=== PATIENT | female | born 1995 | race Caucasian/White ===

== ENCOUNTER 2016-05-15 09:21 | Emergency (ER) | payer BC, OTHER ==
--- NOTE | 2016-05-15 10:12 | ED ---
Lower Extremity - HPI Summary HPI Summary: 20 female presents with complaints of left ankle pain after an injury that occurred while at training at the [facility] just [employer] 05/15/16. Patient states she was going up stairs of a building with her partner and his slipped and fell while going up the stairs in front of her, also causing her to lose her footing. His air pack fell onto the top of her left foot and her ankle was wedged between the air pack and the step. Denies any twisting, hearing popping or cracking and is able to bear weight. She can walk however it hurts to walk, bearing weight does not cause her much pain. She denies numbness/tingling and loss of ROM. She did not take anything for the pain before arrival. Denies PMHx. Denies radiation and pain in left knee or right lower extremity. - History of Current Complaint Chief Complaint: EDExtremityLower Stated Complaint: LT ANKLE INJURY Hx Obtained From: Patient Hx Last Menstrual Period: april 28 Mechanism Of Injury: Blunt Trauma - wedged in between air pack and stair Onset of Pain: Immediate Onset/Duration: Hours Severity Initially: Mild Severity Currently: Mild Pain Intensity: 4 Pain Scale Used: 0-10 Numeric Timing: Constant Location: Is Discrete @ - left ankle Character Of Pain: Aching - cramping, intermittently Associated Signs And Symptoms: Positive: Negative Aggravating Factor(s): Ambulation, Movement Alleviating Factor(s): Rest Able to Bear Weight: Yes - Allergies/Home Medications Allergies/Adverse Reactions: Allergies Allergy/AdvReac Type Severity Reaction Status Date / Time Sulfamethoxazole Allergy Intermediate Hives Verified 05/15/16 09:43 w/Trimethoprim [From Bactrim] PMH/Surg Hx/FS Hx/Imm Hx Endocrine/Hematology History: Denies: Hx Diabetes, Hx Thyroid Disease Cardiovascular History: Denies: Hx Hypercholesterolemia, Hx Hypertension, Hx Peripheral Vascular Disease Respiratory History: Reports: Hx Asthma - mostly grown out of Denies: Hx Chronic Obstructive Pulmonary Disease (COPD) GI History: Denies: Hx Ulcer Musculoskeletal History: Denies: Hx Arthritis, Hx Rheumatoid Arthritis, Hx Osteoporosis Sensory History: Denies: Hx Cataracts, Hx Contacts or Glasses, Hx Glaucoma Opthamlomology History: Denies: Hx Cataracts, Hx Contacts or Glasses, Hx Glaucoma Neurological History: Denies: Hx Headaches, Hx Seizures, Hx Transient Ischemic Attacks (TIA) Psychiatric History: Denies: Hx Anxiety, Hx Depression - Surgical History Surgery Procedure, Year, and Place: none - Immunization History Immunizations Up to Date: Yes Infectious Disease History: No Infectious Disease History: Denies: Hx Clostridium Difficile, Hx Hepatitis, Hx Human Immunodeficiency Virus (HIV), Hx of Known/Suspected MRSA, Hx Shingles, Hx Tuberculosis, Hx Known/ Suspected VRE, Hx Known/Suspected VRSA, History Other Infectious Disease, Traveled Outside the [place] in Last 30 Days - Family History Known Family History: Positive: None, Unknown - ADOPTED - Social History Alcohol Use: Rare Hx Substance Use: No Substance Use Type: Reports: None Hx Tobacco Use: No Smoking Status (MU): Never Smoked Tobacco Review of Systems Constitutional: Negative Eyes: Negative ENT: Negative Cardiovascular: Negative Respiratory: Negative Gastrointestinal: Negative Genitourinary: Negative Positive: Arthralgia, Myalgia, Decreased ROM - left ankle Skin: Negative Neurological: Negative Psychological: Normal All Other Systems Reviewed And Are Negative: Yes Physical Exam Triage Information Reviewed: Yes Vital Signs On Initial Exam: Initial Vitals Temp Pulse Resp BP Pulse Ox 97.8 F 103 18 114/77 99 05/15/16 09:43 05/15/16 09:43 05/15/16 09:43 05/15/16 09:43 05/15/16 09:43 Vital Signs Reviewed: Yes Appearance: Positive: Well-Appearing, No Pain Distress, Well-Nourished Skin: Positive: Warm, Skin Color Reflects Adequate Perfusion - < 2 second cap refill, Dry. Negative: Erythema @ Head/Face: Positive: Normal Head/Face Inspection Eyes: Positive: Normal ENT: Positive: Normal ENT inspection, Hearing grossly normal Neck: Positive: Supple, Nontender Respiratory/Lung Sounds: Positive: Clear to Auscultation, Breath Sounds Present Cardiovascular: Positive: Normal, RRR, Pulses are Symmetrical in both Upper and Lower Extremities - 2+ pedal pulses bilaterally Abdomen Description: Positive: Nontender Musculoskeletal: Positive: Strength/ROM Intact - with pain, Pain @ - left ankle on palpation area of lateral malleolous and ATFL, calcaneo-fibular ligament, and posterior talo-fibular ligament. non-tender on bony palpation of rest of foot. sensation and skin intact. Thomspon test normal, achilles tendon appears in-tact. no sign of ecchymosis, edema, creptitus or step-off or obvious deformity.. Negative: Limited @, Interruption @, Kary Sign Left, Kary Sign Right, Edema Left, Edema Right Neurological: Positive: Normal, Sensory/Motor Intact, Alert, Oriented to Person Place, Time, Normal Gait - with limping Diagnostics - Vital Signs Vital Signs Temp Pulse Resp BP Pulse Ox 05/15/16 09:43 97.8 F 103 18 114/77 99 - Laboratory Lab Statement: Any lab studies that have been ordered have been reviewed, and results considered in the medical decision making process. - Radiology left ankle Xray Interpretation: No Acute Changes - no medial malleolous tenderness and mortise is intact. no sign of fracture or dislocation Radiology Interpretation Completed By: ED Physician - Dr Mahmood, Radiologist - Normal ankle radiograph. If the patient's symptoms persist, follow-up imaging is recommended. Re-Evaluation - Re-Evaluation First Eval Re-Evaluation Time: 12:02 Change: Improved - relief afteer Ibuprofen Lower Extremity Course/Dx - Course Course Of Treatment: ibuprofen given for pain and inflammation. ice. x-ray obtained and negative. miguelina wrapped. patient stated she would take OTC ibuprofen. RICE. aware of worsening signs and symptoms. follow up - Diagnoses Differential Diagnosis/HQI/PQRI: Positive: Contusion, Dislocation, Fracture ( Closed), Sprain, Strain Provider Diagnoses: Left lateral ankle pain, Contusion of left ankle or foot Discharge - Discharge Plan Condition: Stable Disposition: HOME Patient Education Materials: Ankle Sprain (ED), Arthralgia (ED) Referrals: Rochelle Hand NP [Primary Care Provider] - Additional Instructions: Take OTC Aleve or Ibuprofen for pain and inflammation. Rest and ice your ankle. Use miguelina bandage for support. You may notice more bruising tomorrow, this is normal. Try and refrain from strenuous physical activity until symptoms have subsided. If the pain increases, you experience numbness/tingling or you are unable to walk or bear weight please return. Follow up with your PCP.
[2016-05-15] MEDS ORDERED: Ibuprofen TAB* 400 MG PO ONE (10:18)
[2016-05-15 12:34] VITALS: BP 118/72
--- NOTE | 2016-05-15 12:55 | RAD ---
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 FINDINGS: The well corticated bones exhibit normal alignment. Joint spaces appear maintained. No fracture is seen. IMPRESSION: Normal ankle radiograph. If the patient's symptoms persist, follow-up imaging is recommended.
== END 2016-05-15 12:33 | disposition home or self-care (01) ==
LOC: ED 09:21
DX: M25.572 Pain in left ankle and joints of left foot (principal); S90.02XA Contusion of left ankle, initial encounter; W10.9XXA Fall (on) (from) unspecified stairs and steps, initial encounter; Y93.79 Activity, other specified sports and athletics; Y92.89 Other specified places as the place of occurrence of the external cause; Y99.0 Civilian activity done for income or pay; Z88.2 Allergy status to sulfonamides
CPT/HCPCS: 99282; A9270-GY

== ENCOUNTER 2016-10-26 10:18 | Emergency (ER) | payer BC, OTHER ==
--- NOTE | 2016-10-26 11:58 | ED ---
Abdominal Pain/Female - HPI Summary HPI Summary: Patient presents to the ED with CC of RLQ pain since last evening. She notes to mild discomfort in the LLQ. She notes to decreased appetite. Denies urinary symptoms, back pain, nausea, vomiting, diarrhea or constipation. Denies fevers, sweats or chills. Denies abdominal surgeries. LMP 2.5 weeks ago and no history of cysts. She was treated for a yeast infection 2 days ago, and states she took the fluconazole 150mg tab yesterday afternoon and began symptoms of stabbing pain in the RLQ a few hours after. She denies any vaginal burning or itching. Denies chance of . Here with mother. Pain is not better or worse with movement, position or food. Patient is a vegan and denies any dietary changes. - History of Current Complaint Chief Complaint: UCAbdominalPain Stated Complaint: ABD PAIN Time Seen by Provider: 10/26/16 10:45 Hx Obtained From: Patient Hx Last Menstrual Period: 10/07/16 ?: No Onset/Duration: Sudden Onset Timing: Constant Severity Initially: Moderate Severity Currently: Moderate Pain Intensity: 8 Pain Scale Used: 0-10 Numeric Location: Discrete At: RLQ Radiates: Yes Radiates to: LLQ Character: Sharp, Cramping, Colicy Aggravating Factor(s): Nothing Alleviating Factor(s): Nothing Associated Signs and Symptoms: Positive: Negative - Risk Factors Ectopic Risk Factor: Negative Ovarian Torsion Risk Factor: Reproductive Age Allergies/Adverse Reactions: Allergies Allergy/AdvReac Type Severity Reaction Status Date / Time Sulfamethoxazole Allergy Intermediate Hives Verified 10/26/16 10:34 w/Trimethoprim [From Bactrim] Home Medications: Home Medications Ibuprofen [Ibuprofen 200 MG] 400 mg PO PRN 10/26/16 [History] PMH/Surg Hx/FS Hx/Imm Hx Previously Healthy: Yes Endocrine/Hematology History: Denies: Hx Diabetes, Hx Thyroid Disease Cardiovascular History: Denies: Hx Hypercholesterolemia, Hx Hypertension, Hx Peripheral Vascular Disease Respiratory History: Reports: Hx Asthma Denies: Hx Chronic Obstructive Pulmonary Disease (COPD) GI History: Denies: Hx Ulcer Musculoskeletal History: Denies: Hx Arthritis, Hx Rheumatoid Arthritis, Hx Osteoporosis Sensory History: Denies: Hx Cataracts, Hx Contacts or Glasses, Hx Glaucoma Opthamlomology History: Denies: Hx Cataracts, Hx Contacts or Glasses, Hx Glaucoma Neurological History: Denies: Hx Headaches, Hx Seizures, Hx Transient Ischemic Attacks (TIA) Psychiatric History: Denies: Hx Anxiety, Hx Depression - Surgical History Surgery Procedure, Year, and Place: none - Immunization History Hx Pertussis Vaccination: No Immunizations Up to Date: Unable to Obtain/Confirm Infectious Disease History: No Infectious Disease History: Denies: Hx Clostridium Difficile, Hx Hepatitis, Hx Human Immunodeficiency Virus (HIV), Hx of Known/Suspected MRSA, Hx Shingles, Hx Tuberculosis, Hx Known/ Suspected VRE, Hx Known/Suspected VRSA, History Other Infectious Disease, Traveled Outside the [place] in Last 30 Days - Family History Known Family History: Positive: None, Unknown - ADOPTED - Social History Occupation: Unemployed Lives: With Family Alcohol Use: Occasionally Hx Substance Use: No Substance Use Type: Reports: None Hx Tobacco Use: No Smoking Status (MU): Never Smoked Tobacco Do You Chew or Dip Tobacco: No Review of Systems Positive: Fever, Chills, Fatigue Eyes: Negative Cardiovascular: Negative Respiratory: Negative Negative: Shortness Of Breath, Cough Positive: Abdominal Pain - RLQ. Negative: Vomiting, Diarrhea, Nausea Genitourinary: Negative Musculoskeletal: Negative Skin: Negative Neurological: Negative All Other Systems Reviewed And Are Negative: Yes Physical Exam Triage Information Reviewed: Yes Vital Signs On Initial Exam: Initial Vitals Temp Pulse Resp Pulse Ox 98.8 F 73 14 100 10/26/16 10:29 10/26/16 10:29 10/26/16 10:29 10/26/16 10:29 Vital Signs Reviewed: Yes Appearance: Positive: Well-Appearing, Well-Nourished Skin: Positive: Warm, Skin Color Reflects Adequate Perfusion Head/Face: Positive: Normal Head/Face Inspection Respiratory/Lung Sounds: Positive: Clear to Auscultation, Breath Sounds Present Cardiovascular: Positive: Normal, RRR, Pulses are Symmetrical in both Upper and Lower Extremities Abdomen Description: Positive: Guarding, McBurney's Point Tenderness, Other: - negative almendarez's sign; no CVA tenderness bilaterally; no organomegaly identified; limited exam d/t patient discomfort. Psoas and obtruator positive. standing, jumping - causing worsening pain. no distention noted. Bowel Sounds: Positive: Hypoactive Musculoskeletal: Positive: Normal, Strength/ROM Intact Neurological: Positive: Speech Normal Psychiatric: Positive: Normal Diagnostics - Vital Signs Vital Signs Temp Pulse Resp Pulse Ox 10/26/16 10:29 98.8 F 73 14 100 - Laboratory Lab Statement: Any lab studies that have been ordered have been reviewed, and results considered in the medical decision making process. Abdominal Pain Fem Course/Dx - Course Course Of Treatment: Patient evaluated for acute lower right abdominal pain. Negative almendarez's sign; no CVA tenderness bilaterally; no organomegaly identified; limited exam d/t patient discomfort. Psoas and obtruator positive. standing, jumping - causing worsening pain. no change of per patient. no history of cysts. no distention noted. Discussed treatment options with patient. She agrees to go to the ED for further evalution. It was discussed, she will need blood work and likely further imaging which we are not equipped for in the . She agrees and is OK for discharge. She is stable at discharge and denies any fevers, sweats or chills. She is uncomfortable walking. UA sent. +[address] on abx. Will defer to ED. - Diagnoses Differential Diagnosis: Positive: Appendicitis, Ovarian Cyst, Urinary Tract Infection Provider Diagnoses: Abdominal pain Discharge - Discharge Plan Condition: Stable Disposition: HOME Patient Education Materials: Abdominal Pain (ED) Referrals: Rochelle Hand NP [Primary Care Provider] - Additional Instructions: I advise you go to the ED.
== END 2016-10-26 11:09 | disposition home or self-care (01) ==
LOC: UCEAST 10:18
DX: R10.32 Left lower quadrant pain (principal)
CPT/HCPCS: 81003; 87086; 99212; G0463

== ENCOUNTER 2016-10-26 11:35 | Day surgery (SDC) | payer BC ==
[2016-10-26] MEDS ORDERED: Ondansetron INJ* 2 MG/ML VIAL IV ONE ×2 (13:01→18:34)
[2016-10-26] MEDS ORDERED: Morphine INJ* 4 MG/ML 1 ML SYRINGE IV ONE ×2 (13:01→16:10)
[2016-10-26 13:32] LABS: Hematocrit 38 % (35-47); Hemoglobin 12.6 g/dl (12.0-16.0); Mean Corpuscular HGB Conc 33 g/dl (31-36); Mean Corpuscular Hemoglobin 30 pg (27-31); Mean Corpuscular Volume 91 fL (80-97); Mean Platelet Volume 9 um3 (7.4-10.4); Red Cell Distribution Width 13 % (10.5-15); White Blood Count 11.3 10^3/ul (3.5-10.8)
[2016-10-26] MEDS: NS 0.9% 1000 ML* 2,000 ML IV ONE ×2 (13:40→13:46)
[2016-10-26 13:52] LABS: ALT 18 U/L (7-52); AST 19 U/L (13-39); Alkaline Phosphatase 54 U/L (34-104); Amylase 34 U/L (29-103); Anion Gap 7 mmol/L (2-11); BUN/Creatinine Ratio 12.8 (8-20); Blood Urea Nitrogen 11 mg/dL (6-24); CO2 Carbon Dioxide 27 mmol/L (22-32); Calcium 9.2 mg/dL (8.6-10.3); Chloride 103 mmol/L (101-111); EGFR African American 107.1 (>60); EGFR Non-African American 83.3 (>60); Globulin 2.8 g/dL (2-4); Glucose 84 mg/dL (70-100); Lipase < 10 U/L (11.0-82.0); Potassium 3.9 mmol/L (3.5-5.0); Sodium 137 mmol/L (133-145); Total Protein 6.8 g/dL (6.4-8.9)
--- NOTE | 2016-10-26 14:33 | RAD ---
Indication: RIGHT lower quadrant pain. Question ovarian cyst rupture and torsion. Comparison: No relevant prior exams available on the [facility] for comparison. Technique: Transabdominal pelvic ultrasound. The patient refused a transvaginal exam. Report: Unremarkable 8.0 x 3.1 x 5.3 cm anteverted uterus. 9.0 mm endometrium. IUD appears in appropriate position within the endometrial cavity. Physiologic small volume of free fluid in the cul-de-sac. 4.1 x 3.1 x 2.6 cm RIGHT ovary with documented vascular flow is remarkable for multiple small follicles only. 3.1 x 1.9 x 3.0 cm LEFT ovary with documented vascular flow is remarkable for small follicles only. No visualized extra ovarian adnexal region lesions. IMPRESSION: 1. IUD appears in appropriate position in the endometrial cavity. 2. Unremarkable normal sized ovaries with documented vascular flow. 3. Physiologic small volume of free fluid.
[2016-10-26 15:22] LABS: Urine Bacteria Absent (Absent); Urine Bilirubin Negative (Negative); Urine Glucose Negative (Negative); Urine Nitrite Negative (Negative)
[2016-10-26] MEDS ORDERED: Iohexol 300* (CONTRAST) 10 ML SDV IV ONE (15:27)
--- NOTE | 2016-10-26 17:00 | RAD ---
INDICATION: RIGHT lower quadrant pain, anorexia. Concern for appendicitis. COMPARISON: Pelvic ultrasound of the same date. TECHNIQUE: Multidetector CT images were obtained from the lung bases to the ischial tuberosities with 81 mL Omnipaque 300 IV and oral contrast. Multiplanar reformation. REPORT: Unremarkable visualized inferior thorax. Unremarkable liver aside from mild periportal edema likely secondary to high volume state given full physiologic distention of the IVC. No CT abnormality of the gallbladder, pancreas, spleen. Negative for CT abnormality of the upper GI or small bowel. The appendix is difficult to visualize extending posteriorly from the cecum reference axial images 130-130 of 180. The appendix appears mildly prominent measuring up to 1 cm diameter at the junction with the cecum and 7.5 mm more distally. No significant periappendiceal inflammatory change evident. Enteric contrast extends to the transverse colon. No CT abnormality of the colon. Physiologic small volume of free pelvic fluid. Unremarkable adrenal glands. Unremarkable kidneys with symmetric nephrograms and pyelograms. No suspicious finding along the course of the ureters. Unremarkable anteverted uterus with IUD in place. Unremarkable adnexal regions. Negative for lymphadenopathy. Unremarkable abdominal aorta and iliac arteries. Physiologic distention of the IVC. Negative for suspicious osseous lesions. IMPRESSION: 1. Mild dilatation of the appendix without compelling periappendiceal inflammatory change. Early appendicitis is not excluded. Correlate with clinical assessment. 2. Physiologic range small volume of free fluid in the pelvis. 3. Suggestion of high volume state with distention of the IVC and periportal edema at the liver.
[2016-10-26] MEDS ORDERED: Buffered Lidocaine 0.9% SYRIN* 5 ML/SYR SYRINGE INTRADERM ONE (18:17)
[2016-10-26] MEDS ORDERED: Dexamethasone IV* 4 MG/ML 1 ML (4 MG) IV SLOW PU ONE (18:17)
[2016-10-26] MEDS ORDERED: Metoclopramide IV* 5 MG/ML 2 ML VIAL IV SLOW PU ONE (18:17)
[2016-10-26] MEDS ORDERED: ceFAZolin 2 GM PREMIX (*) 50 ML IVPB ONE (18:29)
[2016-10-26] MEDS ORDERED: Ondansetron INJ* 2 MG/ML VIAL ONE ×2 (18:32→19:00)
[2016-10-26] MEDS ORDERED: Bupivacaine 0.25% SDV* 30 ML ONE (18:40)
--- NOTE | 2016-10-26 18:49 | ED ---
Janak Palmer Angela, scribed for Haile Meadows MD on 10/26/16 at 1241 . Abdominal Pain/Female - HPI Summary HPI Summary: This pt is a 21 y/o female presenting to [facility] c/o gradual onset of RLQ abd pain since last night. Pt reports last night she had abd cramps and in the middle of the night her pain localized to her RLQ. She notes it mildly radiates to her back and describes it as cramps. Pt denies eating today and is not hungry. Her pain is aggravated with ambulation and movement (bumps in the car). Pt is passing gas and belching. She does not have any pain when breathing in. Pt denies fever, diarrhea, vomiting, nausea, ovary pain, vaginal bleeding or discharge, rash, chest pain, SOB, sore throat. She took ibuprofen last night at 2230 with no relief. LNMP: 2 weeks ago. Pt has no PMHx of kidney stones. - History of Current Complaint Chief Complaint: EDGregorio Stated Complaint: RT ABD PAIN/CRAMPING Time Seen by Provider: 10/26/16 12:28 Hx Obtained From: Patient Hx Last Menstrual Period: 10/07/16 ?: No Onset/Duration: Gradual Onset Pain Intensity: 8 Pain Scale Used: 0-10 Numeric Location: Discrete At: RLQ Radiates: Yes Radiates to: Back - cramps Aggravating Factor(s): Movement, Other: - ambulation Allergies/Adverse Reactions: Allergies Allergy/AdvReac Type Severity Reaction Status Date / Time Sulfamethoxazole Allergy Intermediate Hives Verified 10/26/16 10:34 w/Trimethoprim [From Bactrim] PMH/Surg Hx/FS Hx/Imm Hx Endocrine/Hematology History: Denies: Hx Diabetes, Hx Thyroid Disease Cardiovascular History: Denies: Hx Hypercholesterolemia, Hx Hypertension, Hx Peripheral Vascular Disease Respiratory History: Reports: Hx Asthma Denies: Hx Chronic Obstructive Pulmonary Disease (COPD) GI History: Denies: Hx Ulcer Musculoskeletal History: Denies: Hx Arthritis, Hx Rheumatoid Arthritis, Hx Osteoporosis Sensory History: Denies: Hx Cataracts, Hx Contacts or Glasses, Hx Glaucoma Opthamlomology History: Denies: Hx Cataracts, Hx Contacts or Glasses, Hx Glaucoma Neurological History: Denies: Hx Headaches, Hx Seizures, Hx Transient Ischemic Attacks (TIA) Psychiatric History: Denies: Hx Anxiety, Hx Depression - Surgical History Surgery Procedure, Year, and Place: none Infectious Disease History: Denies: Hx Clostridium Difficile, Hx Hepatitis, Hx Human Immunodeficiency Virus (HIV), Hx of Known/Suspected MRSA, Hx Shingles, Hx Tuberculosis, Hx Known/ Suspected VRE, Hx Known/Suspected VRSA, History Other Infectious Disease, Traveled Outside the [place] in Last 30 Days - Family History Known Family History: Positive: Unknown - PT WAS ADOPTED - UNKNOWN FHx - Social History Occupation: Student - at 3 Alcohol Use: Occasionally Hx Substance Use: No Substance Use Type: Reports: None Hx Tobacco Use: No Smoking Status (MU): Never Smoked Tobacco Review of Systems Negative: Fever, Chills Eyes: Negative ENT: Negative Negative: Chest Pain Negative: Shortness Of Breath Positive: Abdominal Pain - RLQ. Negative: Vomiting, Diarrhea, Nausea Negative: dysuria, discharge, frequency, hematuria, incontinence, urgency, other - NEGATIVE: vaginal bleeding or discharge, urinary symptoms Positive: Other - back cramps Skin: Negative Negative: Headache, Weakness, Paresthesia, Numbness All Other Systems Reviewed And Are Negative: Yes Physical Exam - Summary Physical Exam Summary: The patient is well-nourished in mild acute distress. She appears uncomfortable. The skin is warm and dry and skin color reflects adequate perfusion. HEENT: The head is normocephalic and atraumatic. The pupils are equal and reactive. The conjunctivae are clear and without drainage. Nares are patent and without drainage. Mouth reveals dry mucous membranes and the throat is without erythema and exudate. The external ears are intact. The ear canals are patent and without drainage. The tympanic membranes are intact. Neck is supple with full range of motion and non-tender. There are no carotid bruits. Respiratory: Chest is non-tender. Lungs are clear to auscultation and breath sounds are symmetrical and equal. Cardiovascular: Heart is tachycardic. There is no murmur or rub auscultated. There is no peripheral edema and pulses are symmetrical and equal. Abdomen: The abdomen is soft and there is marked tenderness over McBurney's point. There is RLQ tenderness. There is no guarding or rebound. There is questionable tenderness over the right ovary. There are positive bowel sounds heard. Pt has no CVA tenderness. Musculoskeletal: There is no back pain noted. Extremities are non-tender with full range of motion. The capillary refill is less than 2 seconds. There is no peripheral edema or calf tenderness elicited. There is pain with flexion of the right leg. Neurological: Patient is alert and oriented to person, place and time. The patient has symmetrical motor strength in all four extremities. Cranial nerves are grossly intact. Deep tendon reflexes are symmetrical and equal in all four extremities. Psychiatric: The patient has an appropriate affect and does not exhibit any anxiety or depression. Triage Information Reviewed: Yes Vital Signs On Initial Exam: Initial Vitals Temp 98.0 F 10/26/16 11:42 Vital Signs Reviewed: Yes Diagnostics - Vital Signs Vital Signs Temp Pulse Resp BP Pulse Ox 10/26/16 11:43 98.0 F 91 20 122/73 100 10/26/16 11:42 98.0 F - Laboratory Lab Results: Lab Results 10/26/16 10/26/16 10/26/16 Range/Units 13:15 13:15 13:15 WBC 11.3 H (3.5-10.8) 10^3/ul RBC 4.20 (4.0-5.4) 10^6/ul Hgb 12.6 (12.0-16.0) g/dl Hct 38 (35-47) % MCV 91 (80-97) fL MCH 30 (27-31) pg MCHC 33 (31-36) g/dl RDW 13 (10.5-15) % Plt Count 165 (150-450) 10^3/ul MPV 9 (7.4-10.4) um3 Neut % (Auto) 80.7 (38-83) % Lymph % (Auto) 11.1 L (25-47) % Bullock % (Auto) 7.1 (1-9) % Eos % (Auto) 0.9 (0-6) % Baso % (Auto) 0.2 (0-2) % Absolute Neuts (auto) 9.1 H (1.5-7.7) 10^3/ul Absolute Lymphs (auto) 1.3 (1.0-4.8) 10^3/ul Absolute Monos (auto) 0.8 (0-0.8) 10^3/ul Absolute Eos (auto) 0.1 (0-0.6) 10^3/ul Absolute Basos (auto) 0 (0-0.2) 10^3/ul Absolute Nucleated RBC 0 10^3/ul Nucleated RBC % 0 Sodium 137 (133-145) mmol/L Potassium 3.9 (3.5-5.0) mmol/L Chloride 103 (101-111) mmol/L Carbon Dioxide 27 (22-32) mmol/L Anion Gap 7 (2-11) mmol/L BUN 11 (6-24) mg/dL Creatinine 0.86 (0.51-0.95) mg/dL Est GFR ( Amer) 107.1 (>60) Est GFR (Non-Af Amer) 83.3 (>60) BUN/Creatinine Ratio 12.8 (8-20) Glucose 84 (70-100) mg/dL Lactic Acid 0.5 (0.5-2.0) mmol/L Calcium 9.2 (8.6-10.3) mg/dL Total Bilirubin 0.70 (0.2-1.0) mg/dL AST 19 (13-39) U/L ALT 18 (7-52) U/L Alkaline Phosphatase 54 (34-104) U/L C-Reactive Protein 30.80 H (< 5.00) mg/L Total Protein 6.8 (6.4-8.9) g/dL Albumin 4.0 (3.2-5.2) g/dL Globulin 2.8 (2-4) g/dL Albumin/Globulin Ratio 1.4 (1-3) Amylase 34 (29-103) U/L Lipase < 10 L (11.0-82.0) U/L Beta HCG, Quant 0.64 mIU/mL Urine Color Urine Appearance Urine pH (5-9) Ur Specific [place] (1.010-1.030) Urine Protein (Negative) Urine Ketones (Negative) Urine Blood (Negative) Urine Nitrate (Negative) Urine Bilirubin (Negative) Urine Urobilinogen (Negative) Ur Leukocyte Esterase (Negative) Urine WBC (Auto) (Absent) Urine RBC (Auto) (Absent) Ur Squamous Epith Cells (Absent) Urine Bacteria (Absent) Urine Glucose (Negative) 10/26/16 10/26/16 Range/Units 14:39 18:05 WBC (3.5-10.8) 10^3/ul RBC (4.0-5.4) 10^6/ul Hgb (12.0-16.0) g/dl Hct (35-47) % MCV (80-97) fL MCH (27-31) pg MCHC (31-36) g/dl RDW (10.5-15) % Plt Count (150-450) 10^3/ul MPV (7.4-10.4) um3 Neut % (Auto) (38-83) % Lymph % (Auto) (25-47) % Bullock % (Auto) (1-9) % Eos % (Auto) (0-6) % Baso % (Auto) (0-2) % Absolute Neuts (auto) (1.5-7.7) 10^3/ul Absolute Lymphs (auto) (1.0-4.8) 10^3/ul Absolute Monos (auto) (0-0.8) 10^3/ul Absolute Eos (auto) (0-0.6) 10^3/ul Absolute Basos (auto) (0-0.2) 10^3/ul Absolute Nucleated RBC 10^3/ul Nucleated RBC % Sodium (133-145) mmol/L Potassium (3.5-5.0) mmol/L Chloride (101-111) mmol/L Carbon Dioxide (22-32) mmol/L Anion Gap (2-11) mmol/L BUN (6-24) mg/dL Creatinine (0.51-0.95) mg/dL Est GFR ( Amer) (>60) Est GFR (Non-Af Amer) (>60) BUN/Creatinine Ratio (8-20) Glucose (70-100) mg/dL Lactic Acid 1.8 (0.5-2.0) mmol/L Calcium (8.6-10.3) mg/dL Total Bilirubin (0.2-1.0) mg/dL AST (13-39) U/L ALT (7-52) U/L Alkaline Phosphatase (34-104) U/L C-Reactive Protein (< 5.00) mg/L Total Protein (6.4-8.9) g/dL Albumin (3.2-5.2) g/dL Globulin (2-4) g/dL Albumin/Globulin Ratio (1-3) Amylase (29-103) U/L Lipase (11.0-82.0) U/L Beta HCG, Quant mIU/mL Urine Color Straw Urine Appearance Clear Urine pH 8.0 (5-9) Ur Specific [place] 1.008 L (1.010-1.030) Urine Protein Negative (Negative) Urine Ketones 1+ H (Negative) Urine Blood 1+ H (Negative) Urine Nitrate Negative (Negative) Urine Bilirubin Negative (Negative) Urine Urobilinogen Negative (Negative) Ur Leukocyte Esterase 2+ H (Negative) Urine WBC (Auto) Trace(0-5/hpf) (Absent) Urine RBC (Auto) Absent (Absent) Ur Squamous Epith Cells Present H (Absent) Urine Bacteria Absent (Absent) Urine Glucose Negative (Negative) Result Diagrams: 10/26/16 13:15 10/26/16 13:15 Lab Statement: Any lab studies that have been ordered have been reviewed, and results considered in the medical decision making process. - CT Abd/Pel CT CT Interpretation: Positive (See Comments) - IMPRESSION: 1. Mild dilatation of the appendix without compelling periappendiceal inflammatory change. Early appendicitis is not excluded. Correlate with clinical assessment. 2. Physiologic range small volume of free fluid in the pelvis. 3. Suggestion of high volume state with distension of the IVC and periportal edema at the liver. ED physician has reviewed this radiology report and agrees. CT Interpretation Completed By: Radiologist - Ultrasound No standard instances Ultrasound Interpretation: No Acute Changes - Pelvic US IMPRESSION: 1. IUD appears in appropriate position in the endometrial cavity. 2. Unremarkable normal sized ovaries with documented vascular flow. 3. Physiologic small volume of free fluid. ED physician has reviewed this radiology report and agrees. Ultrasound Interpretation Completed By: Radiologist Re-Evaluation - Re-Evaluation First Eval Re-Evaluation Time: 17:10 Comment: I reviewed the results with the pt and mother. On repeat exam, pt still had tenderness in the RLQ and referred pain in the LLQ. Pt is quite uncomfortable. Abdominal Pain Fem Course/Dx - Course Course Of Treatment: Pt is a 21 y/o female presenting to [facility] c/o gradual onset of RLQ abd pain since last night. Labs, UA, CT abd/pel, and pelvic US were obtained. In the ED course, the pt was given IV fluids, morphine, and zofran. Labs show CRP of 30.8, lipase is <10. hCG is negative. UA shows urine ketones 1+, urine blood 1+, urine leukocyte esterase 2+, present urine squamous epithelial cells. CT abd/pel reveals mild dilatation of the appendix without compelling periappendiceal inflammatory change. Early appendicitis is not excluded. Correlate with clinical assessment. Pelvic US reveals unremarkable normal sized ovaries with documented vascular flow. I spoke with JAYSON Duncan from surgery. Pt will be taken to the OR by Dr. Fu for acute appendicitis. - Diagnoses Differential Diagnosis: Positive: Appendicitis, Ovarian Cyst, Renal Colic, Urinary Tract Infection Provider Diagnoses: Acute appendicitis - Provider Notifications Discussed Care Of Patient With: Pj Fu Time Discussed With Above Provider: 18:19 Instructed by Provider To: Other - Dr. Fu saw the patient in the ED and will take the pt to the OR. Discharge - Discharge Plan Condition: Stable Disposition: ADMITTED TO [facility] The documentation as recorded by the Janak calvo Angela accurately reflects the service I personally performed and the decisions made by me, Haile Meadows MD.
[2016-10-26] MEDS ORDERED: Dexamethasone IV* 4 MG/ML 1 ML (4 MG) ONE (18:50)
[2016-10-26] MEDS ORDERED: Famotidine IV* 10 MG/ML 2 ML (20 mg) ONE (18:50)
[2016-10-26] MEDS ORDERED: Metoclopramide IV* 5 MG/ML 2 ML VIAL ONE (18:58)
[2016-10-26] MEDS ORDERED: fentaNYL* 50 MCG/ML 5 ML VIAL (250 MCG VIAL) ONE (19:00)
[2016-10-26] MEDS ORDERED: Midazolam* 1 MG/ML 5 ML VIAL (5 MG) ONE (19:00)
[2016-10-26] MEDS ORDERED: Lidocaine 2% PF * 5 ML VIAL ONE (19:00)
[2016-10-26] MEDS ORDERED: Ketorolac INJ* 30 MG/ML 1 ML VIAL ONE (19:00)
[2016-10-26] MEDS ORDERED: Atracurium* 10 MG/ML 10 ML VIAL ONE (19:00)
[2016-10-26] MEDS ORDERED: Propofol* 10 MG/ML 20 ML BTL IV PUSH ONE (19:00)
[2016-10-26] MEDS ORDERED: Famotidine IV* 10 MG/ML 2 ML (20 mg) IV SLOW PU ONE (19:06)
[2016-10-26] MEDS ORDERED: Glycopyrrolate IV* 0.2 MG/ML 1 ML VIAL ONE (19:33)
[2016-10-26] MEDS ORDERED: HYDROmorphone* 1 MG/ML 1 ML SYR IV PRN (19:36)
[2016-10-26] MEDS ORDERED: fentaNYL* 50 MCG/ML 2 ML VIAL (100 MCG VIAL) IV PRN (19:36)
[2016-10-26] MEDS ORDERED: DiMENhydriNATE IV* 50 MG/ML VIAL IV PUSH PRN (19:36)
[2016-10-26] MEDS ORDERED: oxyCODONE/Acetamin 5/325 MG* TAB PO PRN (19:36)
[2016-10-26] MEDS ORDERED: Scopolamine 1.5 mg* PATCH TRANSDERM PRN (19:36)
[2016-10-26] MEDS ORDERED: fentaNYL* 50 MCG/ML 2 ML VIAL (100 MCG VIAL) ONE (19:43)
[2016-10-26] MEDS ORDERED: Bacitracin OINTMENT* 1 TUBE ONE (19:57)
[2016-10-26] MEDS ORDERED: DiMENhydriNATE IV* 50 MG/ML VIAL ONE (20:37)
[2016-10-26] MEDS ORDERED: Scopolamine 1.5 mg* PATCH ONE (20:37)
--- NOTE | 2016-10-26 21:33 | HP ---
ADMISSION HISTORY AND PHYSICAL: DATE OF ADMISSION: 10/26/16 ATTENDING SURGEON: Dr. Pj Fu * (DICTATED BY JAYSON BARBOZA) CHIEF COMPLAINT: Abdominal pain. HISTORY OF PRESENT ILLNESS: This is a generally healthy 21-year-old female who first noted onset of abdominal cramps around 5 to 6 p.m. last evening; these were located across the lower abdomen. She was able to eat dinner and went to bed about 10 p.m. She awoke during the middle of the night with what she described as sharp shooting pains again in the lower abdomen, which continue to be present through this morning without relief. The pain has since moved from the lower abdomen to the right lower quadrant. It has not been associated with any nausea or vomiting. She was anorexic at one point though is feeling a little bit hungry now. She has had normal bowel movements within the last 24 hours. She denies fever or chills. She has not had any prior episodes of similar pain. She has not had any suspect food ingestion or close contacts with any similar symptoms. She is sexually active and has an IUD in place. She denies any vaginal discharge or bleeding. She denies dysuria, hematuria, or increased frequency. PAST MEDICAL HISTORY: No chronic or significant medical problems. PAST SURGICAL HISTORY: She has not had any prior surgeries. MEDICATIONS: None. ALLERGIES: BACTRIM (facial swelling and hives). FAMILY HISTORY: Partly unknown as she is adopted. She is not aware of any family history of anesthesia problems, bleeding or clotting disorders. SOCIAL HISTORY: She denies tobacco use. Drinks alcohol on occasion. REVIEW OF SYSTEMS: General: No recent constitutional symptoms other than those described in the HPI. No other recent acute illnesses. Cardiovascular: No chest pain or palpitations. No history of heart murmur. Respiratory: Past history of asthma. No recent exacerbations. No sore throat or cough. GI: As above per HPI. No additions. : No history of kidney stones, otherwise as above. CARETAKER: No vaginal discharge. Last menstrual period 10/04/16. She does have an IUD in place. She is sexually active. Endocrine: No diabetes or thyroid dysfunction. PHYSICAL EXAMINATION GENERAL: Well-nourished, well-developed female, in no acute distress. VITAL SIGNS: Height 5 feet 11 inches, weight 135 pounds. Temperature 98, blood pressure 122/73, pulse 91, respirations 20. HEENT: Pupils equal and round, reactive. EOMs intact. No conjunctival pallor. Oropharynx: Mucous membranes moist. No intraoral lesions. NECK: No lymphadenopathy thyromegaly, or masses. LUNGS: Clear to auscultation. No rales or wheezes. BREASTS: Not examined. HEART: Regular rate and rhythm. No murmur noted. ABDOMEN: Flat, nondistended. Bowel sounds present. Soft with fairly well localized tenderness in the right lower quadrant with fullness to palpation. Rebound and referred tenderness. The remainder of the abdomen is soft and nontender without palpable masses or organomegaly. There are no palpable hernias. GENITALIA: Not done. RECTAL: Not done. BACK: No spinous process or CVA tenderness. EXTREMITIES: No edema. NEUROLOGICAL: Grossly intact. SKIN: Warm and dry. No suspicious rashes or lesions. DIAGNOSTIC STUDIES/LAB DATA: Pertinent Laboratory: White blood cell count 11, 300, hemoglobin 12.6. There is a slight left shift. CRP is elevated at 31. Liver function tests are normal. Lactic acid is normal at 0.5. Urinalysis shows 2+ leukocyte esterase. Her quantitative hCG is negative at 0.64. DIAGNOSTIC IMAGING: She did have a pelvic ultrasound, which showed the IUD in place with unremarkable ovaries and a small amount of free fluid. CT of the abdomen and pelvis with oral and IV contrast does show a somewhat dilated appendix without significant surrounding inflammatory changes though patient does not have significant body fat (see separate report). IMPRESSION: Acute appendicitis. PLAN/RECOMMENDATIONS: The case was discussed with Dr. Fu who will also see and examine the patient for confirmation. Planned laparoscopic appendectomy. JAYSON BARBOZA [id number]/[facility] #: [id number] [facility] HOSPITALBianka
[2016-10-26 21:47] VITALS: BP 125/69
--- NOTE | 2016-10-27 08:00 | OP ---
DATE OF OPERATION: 10/26/16 [facility] DATE OF : 89 SURGEON: Pj Fu MD. RUBBER BELT SPLICER: JAYSON student. ANESTHESIOLOGIST: Dr. Del Rio. ANESTHESIA: General anesthesia. PRE-OP DIAGNOSIS: Acute appendicitis. POST-OP DIAGNOSIS: Acute appendicitis. OPERATIVE PROCEDURE: Laparoscopy and appendectomy. ESTIMATED BLOOD LOSS: Minimal. FLUIDS: Minimal crystalloid fluid given. SPECIMENS: Appendix. COUNT: Lap pad count and instrument count correct at the end of the procedure. DESCRIPTION OF PROCEDURE: The patient was evaluated in the emergency room first by JAYSON Hernandez, and then by me. I agree with the diagnosis of acute appendicitis. I outlined the details of the procedure to her and her mother going over the risks, benefits, and alternatives including nonoperative management. She agreed. We discussed the possible complications which included but are not limited to bleeding, infection, bowel injury, bladder injury, need for additional procedures or open procedures, and the possibility of abscess formation. The patient signed consent, was marked, taken back to the operating room, and placed on the operating room in the supine position. Preoperative antibiotics were given. Sequential devices were placed on bilateral lower extremities. General anesthesia was induced. The patient was prepped and draped in the standard surgical fashion. A time-out was performed. Fold of the umbilicus was elevated anteriorly and a Veress needle was inserted into the abdominal cavity which was then allowed to insufflate to a pressure of 15 mmHg. The patient tolerated the insufflation well. A 5-mm trocar was then inserted at this umbilical site and laparoscope was inserted. There was no evidence of injury from the trocar insertion and additional trocars were then placed in the following position; a 5 mm in the suprapubic area and a 5 mm in the left lower quadrant. Attention was turned towards the right lower quadrant. Cecum was identified and retracted superiorly. A dilated appendix that was nonperforated, was identified. This was freely floating without any significant attachments. This was then grasped, and the mesoappendix then dissected down towards the artery which was double clipped and ligated with a 5-mm Endo Clip. The base of the appendix was cleaned off with scissors and a #2 Polysorb Endoloop was then placed along the base of the appendix through healthy tissue. Appendix was then cut and placed in an endoscopic retrieval bag and removed through the umbilical port site. The mucosa at the appendiceal stump was then cauterized. Review of the area showed no enteric contents. There was no bleeding. There was some free fluid in the pelvis. It should be noted that prior to performing the appendectomy I reviewed the uterus which was normal appearing without any abnormality. Adnexa bilaterally were intact with no ovarian cysts. Now that the appendix was out of the abdomen, the abdomen was then allowed to collapse. Trocar was removed under direct vision. The left lower quadrant trocar showed evidence of possible bleeding at the muscle. We re-insufflated, put the trocar at the umbilicus back in, looked and saw no bleeding at this site. The abdomen was then allowed to collapse again, trocar was removed and the umbilical port site was reapproximated with 4-0 Chromic suture in a simple fashion and the other two incisions were closed with 4-0 Monocryl subcuticular sutures. Sterile dressing was applied to all three incisions. The patient tolerated the procedure well, was woken up in the OR and transferred back to PACU in stable condition. [id number]/[facility] #: [id number] [facility]PITALBianka
[2016-10-29] MEDS ORDERED: Scopolomine PATCH Remove* 1 NOTE MISC PATCH OFF ONE (19:37)
== END 2016-10-26 22:29 | disposition home or self-care (01) ==
LOC: ED 11:35 → OR 18:19
PROVIDERS: ATTEND Surgery
DX: K35.80 Unspecified acute appendicitis (principal); R10.31 Right lower quadrant pain
CPT/HCPCS: 36415; 74177; 76856; 80053; 81003; 81015; 82150; 83605; 83690; 84702; 85025; 86140; 88304; 96374; 96375; 99283; A9270-GY; C1776; J0690; J1100; J1240; J1885; J2250; J2270; J2405; J2704; J2765; J3010; Q9967

== ENCOUNTER 2017-07-10 11:44 | Emergency (ER) | payer BC, OTHER ==
--- NOTE | 2017-07-10 12:56 | RAD ---
HISTORY: Left shoulder pain COMPARISONS: None VIEWS: 4, Frontal internal rotation, external rotation, outlet, and axillary views of the left shoulder FINDINGS: BONE DENSITY: Normal. BONES: There is no displaced fracture. JOINTS: There is no arthropathy. ALIGNMENT: There is no dislocation. SOFT TISSUES: Unremarkable. OTHER FINDINGS: None. IMPRESSION: NO ACUTE OSSEOUS INJURY. IF SYMPTOMS PERSIST, RECOMMEND REPEAT IMAGING.
[2017-07-10] MEDS ORDERED: Ibuprofen TAB* 800 MG PO ONE (13:11)
--- NOTE | 2017-07-10 13:13 | ED ---
Selene Palmer Gabriel, scribed for Zach Tapia MD on 07/10/17 at 1205 . Upper Extremity Pain - HPI Summary HPI Summary: This patient is a 22 year old F presenting to [facility] accompanied by her partner with a chief complaint of left shoulder pain that began 05-07-17. 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 The patient rates the pain 8/10 in severity. Patient reports decreased ROM. Patient denies pop noise on injury. Pt is currently menstruating. - History of Current Complaint Chief Complaint: EDExtremityUpper Stated Complaint: LT SHOULDER PAIN Time Seen by Provider: 07/10/17 12:01 Hx Obtained From: Patient Hx Last Menstrual Period: 10/07/16 Mechanism Of Injury: Other Onset/Duration: Still Present Timing: Constant Severity Initially: Moderate Severity Currently: Moderate Pain Location: Shoulder - l Associated Signs & Symptoms: Positive: Other - decreased ROM - Allergies/Home Medications Allergies/Adverse Reactions: Allergies Allergy/AdvReac Type Severity Reaction Status Date / Time Sulfa (Sulfonamide Allergy Hives Verified 07/10/17 12:03 Antibiotics) Home Medications: Home Medications NK [No Home Medications Reported] 07/10/17 [History Confirmed 07/10/17] PMH/Surg Hx/FS Hx/Imm Hx Endocrine/Hematology History: Denies: Hx Diabetes, Hx Thyroid Disease Cardiovascular History: Denies: Hx Hypercholesterolemia, Hx Hypertension, Hx Peripheral Vascular Disease Respiratory History: Reports: Hx Asthma Denies: Hx Chronic Obstructive Pulmonary Disease (COPD) GI History: Denies: Hx Ulcer Musculoskeletal History: Denies: Hx Arthritis, Hx Rheumatoid Arthritis, Hx Osteoporosis Sensory History: Denies: Hx Cataracts, Hx Contacts or Glasses, Hx Glaucoma Opthamlomology History: Denies: Hx Cataracts, Hx Contacts or Glasses, Hx Glaucoma Neurological History: Denies: Hx Headaches, Hx Seizures, Hx Transient Ischemic Attacks (TIA) Psychiatric History: Denies: Hx Anxiety, Hx Depression - Surgical History Surgery Procedure, Year, and Place: none Infectious Disease History: No Infectious Disease History: Denies: Hx Clostridium Difficile, Hx Hepatitis, Hx Human Immunodeficiency Virus (HIV), Hx of Known/Suspected MRSA, Hx Shingles, Hx Tuberculosis, Hx Known/ Suspected VRE, Hx Known/Suspected VRSA, History Other Infectious Disease, Traveled Outside the [place] in Last 30 Days - Family History Known Family History: Positive: Unknown - PT WAS ADOPTED - UNKNOWN FHx - Social History Alcohol Use: Occasionally Hx Substance Use: No Substance Use Type: Reports: None Hx Tobacco Use: No Smoking Status (MU): Never Smoked Tobacco Review of Systems Musculoskeletal: Other - Left shoulder pain and decreased ROM Negative: Slurred Speech All Other Systems Reviewed And Are Negative: Yes Physical Exam - Summary Physical Exam Summary: VITAL SIGNS: Reviewed. GENERAL: Patient is a well-developed and nourished female who is lying comfortable in the stretcher. Patient is not in any acute respiratory distress. HEAD AND FACE: No signs of trauma. No ecchymosis, hematomas or skull depressions. No sinus tenderness. EYES: PERRLA, EOMI x 2, No injected conjunctiva, no nystagmus. EARS: Hearing grossly intact. Ear canals and tympanic membranes are within normal limits. MOUTH: Oropharynx within normal limits. NECK: Supple, trachea is midline, no adenopathy, no JVD, no carotid bruit, no c- spine tenderness, neck with full ROM. CHEST: Symmetric, no tenderness at palpation LUNGS: Clear to auscultation bilaterally. No wheezing or crackles. CVS: Regular rate and rhythm, S1 and S2 present, no murmurs or gallops appreciated. ABDOMEN: Soft, non-tender. No signs of distention. No rebound no guarding, and no masses palpated. Bowel sounds are normal. EXTREMITIES: there is decreased ROM in the left shoulder secondary to pain, no deformity or ecchymosis. NEURO: Alert and oriented x 3. No acute neurological deficits. Speech is normal and follows commands. SKIN: Dry and warm Triage Information Reviewed: Yes Vital Signs On Initial Exam: Initial Vitals Temp Pulse Resp BP Pulse Ox 99.2 F 88 17 113/66 100 07/10/17 11:58 07/10/17 11:58 07/10/17 11:58 07/10/17 11:58 07/10/17 11:58 Vital Signs Reviewed: Yes Diagnostics - Vital Signs Vital Signs Temp Pulse Resp BP Pulse Ox 07/10/17 11:58 99.2 F 88 17 113/66 100 - Laboratory Lab Statement: Any lab studies that have been ordered have been reviewed, and results considered in the medical decision making process. - Radiology shoulder Xray Radiology Interpretation Completed By: Radiologist - NO ACUTE OSSEOUS INJURY. IF SYMPTOMS PERSIST, RECOMMEND REPEAT IMAGING. ED physician has reviewed this radiology report. Course/Dx - Course Assessment/Plan: This patient is a 22-year-old female who presents to the emergency room with a chief complaint of left shoulder pain. X-ray of the left shoulder: negative for acute fracture or dislocation. I believe that the patient has a rotator cuff injury. The patient will be placed in the shoulder immobilizer and a follow-up with orthopedics. Patient is hemodynamically stable and will be discharged home. - Diagnoses Differential Diagnosis/HQI/PQRI: Positive: Bursitis, Contusion, Fracture (Closed ), Strain, Sprain Provider Diagnoses: Injury of left rotator cuff Discharge - Sign-Out/Discharge Documenting (check all that apply): Discharge/Admit/Transfer - Discharge Plan Condition: Stable Disposition: HOME Patient Education Materials: Rotator Cuff Injury (ED) Referrals: Jeison White MD [Medical Doctor] - As Soon As Possible Additional Instructions: RETURN TO THE ER FOR ANY NEW OR WORSENING SYMPTOMS - Billing Disposition and Condition Condition: STABLE Disposition: HOME The documentation as recorded by the Selene calvo Gabriel accurately reflects the service I personally performed and the decisions made by , Zach Tapia MD.
[2017-07-10 13:53] VITALS: BP 115/77
== END 2017-07-10 13:53 | disposition home or self-care (01) ==
LOC: ED 11:44
DX: S46.002A Unspecified injury of muscle(s) and tendon(s) of the rotator cuff of left shoulder, initial encounter (principal); X50.9XXA Other and unspecified overexertion or strenuous movements or postures, initial encounter; Y92.9 Unspecified place or not applicable; Z88.2 Allergy status to sulfonamides
CPT/HCPCS: 99282; A9270-GY

== ENCOUNTER 2018-02-15 15:48 | Emergency (ER) | payer BC, OTHER ==
--- NOTE | 2018-02-15 15:56 | UC ---
Respiratory Complaint HPI - HPI Summary HPI Summary: 22 yo female presents with body aches, fatigue, and intermittently productive cough for 3 weeks with sinus pain/pressure/congestion over the last 2-3 days. She has been taking mucinex and dayquill with relief for a few days, but then her symptoms will return. She has felt hot/cold, but has not taken her temperature. Denies sore throat, SOB, chest pain, n/v. - History of Current Complaint Stated Complaint: COUGH, AND FEVER Time Seen by Provider: 02/15/18 15:56 Hx Obtained From: Patient Hx Last Menstrual Period: 10/07/16 Severity Initially: Mild Severity Currently: Moderate Pain Intensity: 5 Pain Scale Used: 0-10 Numeric Character: Cough: Nonproductive - Allergies/Home Medications Allergies/Adverse Reactions: Allergies Allergy/AdvReac Type Severity Reaction Status Date / Time Sulfa (Sulfonamide Allergy Hives Verified 07/10/17 12:03 Antibiotics) PMH/Surg Hx/FS Hx/Imm Hx - Additional Past Medical History Additional PMH: None - Surgical History Surgical History: None Surgery Procedure, Year, and Place: none - Family History Known Family History: Positive: Unknown - PT WAS ADOPTED - UNKNOWN FHx - Social History Occupation: Student Lives: With Family Alcohol Use: Occasionally Substance Use Type: None Smoking Status (MU): Never Smoked Tobacco - Immunization History Most Recent Tetanus Shot: 140 Vaccination Up to Date: Yes Review of Systems All Other Systems Reviewed And Are Negative: Yes Constitutional: Positive: Fatigue, Other - Body aches Skin: Positive: Negative Eyes: Positive: Negative ENT: Positive: Nasal Discharge, Sinus Congestion, Sinus Pain/Tenderness Respiratory: Positive: Cough Cardiovascular: Positive: Negative Gastrointestinal: Positive: Negative Neurovascular: Positive: Negative Neurological: Positive: Negative Psychological: Positive: Negative Physical Exam - Summary Physical Exam Summary: GENERAL: NAD. WDWN. No pain distress. SKIN: No rashes, sores, lesions, or open wounds. HEENT: Head: AT/NC Eyes: EOM intact. Conjunctiva clear without inflammation or discharge. Ears: Hearing grossly normal. TMs intact, no bulging, erythema, or edema. Nose: Nasal mucosa pink and moist. NTTP maxillary and frontal sinus. Throat: Posterior oropharynx without exudates, erythema, or tonsillar enlargement. Uvula midline. NECK: Supple. Nontender. No lymphadenopathy. CHEST: CTAB. No r/r/w. No accessory muscle use. Breathing comfortably and in no distress. CV: RRR. Without m/r/g. Pulses intact. Cap refill <2seconds NEURO: Alert. PSYCH: Age appropriate behavior. Triage Information Reviewed: Yes Vital Signs: Vital Signs: Temp Pulse Resp BP Pulse Ox 99.1 F 87 18 123/82 97 02/15/18 16:00 02/15/18 16:00 02/15/18 16:00 02/15/18 16:00 02/15/18 16:00 Vital Signs Reviewed: Yes Respiratory Course/Dx - Course Course Of Treatment: Given length of symptoms with no improvement with OTC medications - pt prefers to be on anbx at this time. Will rx for zpak and have her f/u if her symptoms do not improve. - Differential Dx/Diagnosis Provider Diagnosis: URI (upper respiratory infection) Discharge - Sign-Out/Discharge Documenting (check all that apply): Patient Departure All imaging exams completed and their final reports reviewed: No Studies - Discharge Plan Condition: Stable Disposition: HOME Prescriptions: Azithromycin TAB* [Zithromax TAB (Z-VIDAL) 250 mg #6 tabs] 2 tab PO .TODAY, THEN 1 DAILY #1 vidal Patient Education Materials: Upper Respiratory Infection (DC) Referrals: No Primary Care Phys,NOPCP [Primary Care Provider] - Additional Instructions: If you develop a fever, shortness of breath, chest pain, new or worsening symptoms - please call your PCP or go to the ED. - Billing Disposition and Condition Condition: STABLE Disposition: Home
[2018-02-15 16:02] VITALS: BP 123/82
== END 2018-02-15 16:15 | disposition home or self-care (01) ==
LOC: UCEAST 15:48
DX: J06.9 Acute upper respiratory infection, unspecified (principal); Z88.2 Allergy status to sulfonamides
CPT/HCPCS: 99212; G0463

== ENCOUNTER 2018-02-18 12:55 | Emergency (ER) | payer BC ==
[2018-02-18 13:07] VITALS: BP 123/75
--- NOTE | 2018-02-18 13:24 | UC ---
Headache HPI - HPI Summary HPI Summary: 22-year-old female presents with complaints of an intermittent nonproductive cough for the past 3 weeks. She states that 4 days ago she woke up with fatigue , chills, body aches, and some nasal congestion and sinus pressure. She was seen at this facility 3 days ago, diagnosed with a URI, and started on azithromycin. She states that symptoms have not improved and yesterday she started with a posterior headache that radiates to the top and sides of her head and some neck stiffness. She is taking ibuprofen 600 mg with some improvement in her headache. She is unsure whether she's had any fever. Denies visual disturbances, photophobia, dizziness, vertigo, ear pain, sore throat, chest pain, palpitations, shortness of breath, abdominal pain, nausea, vomiting, or diarrhea. - History Of Current Complaint Chief Complaint: UCGeneralIllness Stated Complaint: HEADACHE Time Seen by Provider: 02/18/18 13:13 Hx Obtained From: Patient Hx Last Menstrual Period: currently Pain Intensity: 6 - Allergies/Home Medications Allergies/Adverse Reactions: Allergies Allergy/AdvReac Type Severity Reaction Status Date / Time Sulfa (Sulfonamide Allergy Hives Verified 02/18/18 13:07 Antibiotics) Home Medications: Home Medications D-Methorphan/PE/Acetaminophen [Daytime Cold-Flu Softgel] 1 each PO 02/18/18 [ History] Ibuprofen TAB* [Motrin TAB* 600 MG] 600 mg PO ONCE PRN 02/18/18 [History Confirmed 02/18/18] PMH/Surg Hx/FS Hx/Imm Hx Previously Healthy: Yes - Denies significant PMH - Surgical History Surgical History: Yes Surgery Procedure, Year, and Place: appendectomy - Family History Known Family History: Positive: None, Unknown - PT WAS ADOPTED - UNKNOWN FHx - Social History Occupation: Student Lives: With Family Alcohol Use: Occasionally Substance Use Type: None Smoking Status (MU): Never Smoked Tobacco - Immunization History Most Recent Tetanus Shot: 140 Vaccination Up to Date: Yes Review of Systems All Other Systems Reviewed And Are Negative: Yes Constitutional: Positive: Chills, Fatigue. Negative: Fever Skin: Negative: Rash Eyes: Negative: Blurred Vision, Diplopia, Drainage, Eye Redness, Photophobia ENT: Positive: Nasal Discharge, Sinus Congestion. Negative: Sore Throat, Ear Ache, Sinus Pain/Tenderness Respiratory: Positive: Cough. Negative: Shortness Of Breath Cardiovascular: Negative: Palpitations, Chest Pain Gastrointestinal: Negative: Abdominal Pain, Vomiting, Diarrhea, Nausea Genitourinary: Negative: Dysuria, Frequency, Urgency Neurological: Positive: Headache. Negative: Weakness, Paresthesia, Numbness Is Patient Immunocompromised?: No Physical Exam - Summary Physical Exam Summary: GENERAL APPEARANCE: Well developed, well nourished, alert and cooperative, and appears to be in no acute distress. HEAD: Atraumatic. normocephalic. EYES: PERRL, EOM intact. Conjunctiva clear. No drainage. Vision is grossly intact. EARS: External auditory canals and tympanic membranes clear, hearing grossly intact. NOSE: No nasal discharge noted. THROAT: Oral cavity and pharynx normal. No inflammation, swelling, exudate, or lesions. Teeth and gingiva in good general condition. NECK: Neck supple, non-tender without lymphadenopathy. CARDIAC: Normal S1 and S2. No S3, S4 or murmurs. Rhythm is regular. There is no peripheral edema, cyanosis or pallor. Extremities are warm and well perfused. Capillary refill is less than 2 seconds. LUNGS: Clear to auscultation and percussion without rales, rhonchi, wheezing or diminished breath sounds. ABDOMEN: Positive bowel sounds. Soft, nondistended, nontender. No guarding or rebound. No masses or hepatosplenomegally. MUSKULOSKELETAL: ROM intact to all extremities. No joint erythema or tenderness. Normal muscular development. Normal gait. NEUROLOGICAL: CN II-XII intact. Strength and sensation symmetric and intact throughout. Reflexes 2+ throughout. Cerebellar testing normal. SKIN: Skin normal color, texture and turgor with no lesions or eruptions. Triage Information Reviewed: Yes Vital Signs: Initial Vital Signs Temp 98.7 F 02/18/18 13:00 Pulse 94 02/18/18 13:00 Resp 16 02/18/18 13:00 BP 123/75 02/18/18 13:00 Pulse Ox 98 02/18/18 13:00 Vital Signs Reviewed: Yes Diagnostics - Laboratory Diagnostic Studies Completed/Ordered: Rapid flu negative. Headache Course/Dx - Course Course Of Treatment: 22-year-old female presents with complaints of an intermittent nonproductive cough for the past 3 weeks. She states that 4 days ago she woke up with fatigue, chills, body aches, and some nasal congestion and sinus pressure. She was seen at this facility 3 days ago, diagnosed with a URI , and started on azithromycin. She states that symptoms have not improved and yesterday she started with a posterior headache that radiates to the top and sides of her head and some neck stiffness. She is taking ibuprofen 600 mg with some improvement in her headache. She is unsure whether she's had any fever. Denies visual disturbances, photophobia, dizziness, vertigo, ear pain, sore throat, chest pain, palpitations, shortness of breath, abdominal pain, nausea, vomiting, or diarrhea. She was afebrile at triage. Vital signs stable. Her exam was unremarkable. Discussed with patient that symptoms could be from a viral infection which is why they are not responding to the antibiotic. Although I have a low suspicion for meningitis did discuss with the patient that with the headache and reports of neck stiffness this would be a consideration and would require evaluation in the emergency room. Patient states she does not feel that this is warranted at this time and is choosing watchful waiting with continued symptomatic treatment. I am recommending that she complete the course of azithromycin since she did have an intermittent cough for the past 3 weeks and unsure whether it is related to her current symptoms. She is to follow-up with her primary care provider in 5 days if symptoms do not improve. Discussed warning symptoms that would require emergency room evaluation with the patient. She verbalizes understanding and agrees with plan of care - Differential Dx/Diagnosis Differential Diagnosis/HQI/PQRI: Meningitis, Migraine, Sinus Headache, Tension Headache, Viral Syndrome Provider Diagnosis: Viral syndrome Discharge - Sign-Out/Discharge Documenting (check all that apply): Patient Departure All imaging exams completed and their final reports reviewed: No Studies - Discharge Plan Condition: Stable Disposition: HOME Patient Education Materials: Viral Syndrome (ED) Forms: *Work Release Referrals: No Primary Care Phys,NOPCP [Primary Care Provider] - Additional Instructions: I suspect that your current symptoms may be from a a viral infection. Viral infections typically run their course in 7-10 days with the worst symptoms during the first 3-5 days. Viral infections do not respond to antibiotics however with the intermittent cough over the past 3 weeks I would recommend that you finish taking the antibiotics as prescribed. Drink plenty of fluids to avoid dehydration especially if you are running any fever. Take over the counter acetaminophen (Tylenol) or ibuprofen (Advil, Motrin) according to directions as needed for pain or fever. Follow up with your primary care provider in 5 days if symptoms persist. Seek immediate medical attention in the emergency room if you have fever greater than 100.5 F despite taking acetaminophen or ibuprofen, have worsening of your headache, become dizzy or lightheaded, have chest pain, difficulty breathing, have persistent vomiting, or have any worsening of symptoms. - Billing Disposition and Condition Condition: STABLE Disposition: Home
== END 2018-02-18 14:08 | disposition home or self-care (01) ==
LOC: UCEAST 12:55
DX: B34.9 Viral infection, unspecified (principal); R05 Cough; R51 Headache; R52 Pain, unspecified; R09.81 Nasal congestion; R53.83 Other fatigue; M53.82 Other specified dorsopathies, cervical region; R68.83 Chills (without fever); Z88.2 Allergy status to sulfonamides; Z87.09 Personal history of other diseases of the respiratory system
CPT/HCPCS: 99211; G0463

== ENCOUNTER 2018-02-18 22:44 | Emergency (ER) | payer BC ==
[2018-02-18] MEDS ORDERED: NS 0.9% 1000 ML* 1,000 ML IV ONE (23:03)
[2018-02-18] MEDS ORDERED: Ketorolac INJ* 30 MG/ML 1 ML VIAL IV PUSH ONE (23:03)
[2018-02-18] MEDS ORDERED: Acetaminophen TAB* 325 MG PO ONE (23:09)
--- NOTE | 2018-02-18 23:19 | ED ---
HPI Febrile Illness - HPI Summary HPI Summary: Pt is a 22 y/o female who presents to the ED c/o headache. She has been sick intermittently for the past 3 weeks, with cold and flu-like symptoms. 3 days ago she began to feel bad again. Yesterday, she began to have SINCLAIR, neck pain, back pain, fever, diaphoresis, and chills. Pt describes her neck pain as stiff and achy, and rates it 5/10 in severity. She denies any ear pain, runny nose, sore throat, recent cough, abdominal pain, SOB, or dysuria. She was seen at the earlier today, and was told to come to the ED if her SINCLAIR worsened. A flu swab was negative. She has been taking Ibuprofen for her symptoms. Pt denies any hx of mono. - History of Current Complaint Chief Complaint: EDHeadache Time Seen by Provider: 02/18/18 22:57 Hx Obtained From: Patient Hx Last Menstrual Period: currently Onset/Duration: Started Weeks Ago - 3, Still Present Timing: Intermittent Current Severity: Moderate Pain Intensity: 5 Pain Scale Used: 0-10 Numeric Aggravating Factors: Nothing Alleviating Factors: OTC Medicine - Ibuprofen Associated Signs and Symptoms: Chills, Diaphoresis, Headache, Stiff Neck - Allergy/Home Medications Allergies/Adverse Reactions: Allergies Allergy/AdvReac Type Severity Reaction Status Date / Time Sulfa (Sulfonamide Allergy Hives Verified 02/18/18 22:56 Antibiotics) PMH/Surg Hx/FS Hx/Imm Hx Endocrine/Hematology History: Denies: Hx Diabetes, Hx Thyroid Disease Cardiovascular History: Denies: Hx Hypercholesterolemia, Hx Hypertension, Hx Peripheral Vascular Disease Respiratory History: Reports: Hx Asthma - in childhood only Denies: Hx Chronic Obstructive Pulmonary Disease (COPD) GI History: Denies: Hx Ulcer Musculoskeletal History: Denies: Hx Arthritis, Hx Rheumatoid Arthritis, Hx Osteoporosis Sensory History: Denies: Hx Cataracts, Hx Contacts or Glasses, Hx Glaucoma Opthamlomology History: Denies: Hx Cataracts, Hx Contacts or Glasses, Hx Glaucoma Neurological History: Denies: Hx Headaches, Hx Seizures, Hx Transient Ischemic Attacks (TIA) Psychiatric History: Denies: Hx Anxiety, Hx Depression - Surgical History Surgery Procedure, Year, and Place: appendectomy Infectious Disease History: No Infectious Disease History: Denies: Hx Clostridium Difficile, Hx Hepatitis, Hx Human Immunodeficiency Virus (HIV), Hx of Known/Suspected MRSA, Hx Shingles, Hx Tuberculosis, Hx Known/ Suspected VRE, Hx Known/Suspected VRSA, History Other Infectious Disease, Traveled Outside the [place] in Last 30 Days - Family History Known Family History: Positive: Unknown - PT WAS ADOPTED - UNKNOWN FHx - Social History Alcohol Use: Occasionally Hx Substance Use: No Substance Use Type: Reports: None Hx Tobacco Use: No Smoking Status (MU): Never Smoked Tobacco Review of Systems Positive: Fever, Chills, Skin Diaphoresis Negative: Sore Throat, Ear Ache, Nasal Discharge Negative: Shortness Of Breath, Cough Negative: Abdominal Pain Negative: dysuria Positive: Myalgia - neck, back Positive: Headache All Other Systems Reviewed And Are Negative: Yes Physical Exam - Summary Physical Exam Summary: Appearance: Well appearing, no pain distress Skin: warm, dry, reflects adequate perfusion Head/face: normal Eyes: EOMI, ANNALEE ENT: mucous membranes moist Neck: supple, tonsil tenderness, bilateral anterocervical adenopathy, negative Kernigs and Brudzinskis signs, no meningismus Respiratory: CTA, breath sounds present Cardiovascular: tachycardic but regular rhythm, pulses symmetrical Abdomen: non-tender, soft Bowel Sounds: present Musculoskeletal: normal, strength/ROM intact Neuro: normal, sensory motor intact, A&Ox3 Triage Information Reviewed: Yes Vital Signs On Initial Exam: Initial Vitals Temp Pulse Resp BP Pulse Ox 102.1 F 100 20 133/83 97 02/18/18 22:50 02/18/18 22:50 02/18/18 22:50 02/18/18 22:50 02/18/18 22:50 Vital Signs Reviewed: Yes Diagnostics - Vital Signs Vital Signs Temp Pulse Resp BP Pulse Ox 02/18/18 23:01 114 98 02/18/18 23:00 97 134/84 98 02/18/18 22:50 102.1 F 100 20 133/83 97 - Laboratory Result Diagrams: 02/18/18 23:07 02/18/18 23:07 Lab Statement: Any lab studies that have been ordered have been reviewed, and results considered in the medical decision making process. Re-Evaluation - Re-Evaluation First Eval Re-Evaluation Time: 12:30 Change: Improved Comment: Pt is feeling better. Her fever is down to 99.5 degrees F. Course/Dx - Course Course Of Treatment: Nurse's notes reviewed. Patient sent from urgent care after evaluation there. Negative for influenza. Patient with fever 102 here. She had diffuse body aches, headache and some neck discomfort. There is no meningismus or rigidity. There is negative Kernig, Brudzinski sign. Treated the patient for fever and hydrated her with significant relief. Negative for mononucleosis, strep, UTI. Blood work is nonrevealing and within normal limits. Likely viral syndrome. Follow up with primary care physician. - Febrile Illness Differential Diagnoses: Bacteremia, Cellulitis, Neoplasm, Other: - UTI, mono, strep - Diagnoses Provider Diagnoses: Viral syndrome, Fever Discharge - Sign-Out/Discharge Documenting (check all that apply): Patient Departure - Discharge - Discharge Plan Condition: Improved Disposition: HOME Patient Education Materials: Viral Syndrome (ED) Referrals: [facility] [Outside] [facility]ICIAN REFERRAL [Outside] Additional Instructions: Treat fever with Tylenol, ibuprofen. Stay well-hydrated. Follow-up with family doctor as soon as possible. Return if worse, new symptoms or other concerns as discussed. - Billing Disposition and Condition Condition: IMPROVED Disposition: Home - Attestation Statements Document Initiated by Shobha: Yes Documenting Scribe: Queenie Mosher Provider For Whom Marileeibe is Documenting (Include Credential): Gilmar Bashir MD Scribe Attestation: Queenie Palmer scribed for Gilmar Bashir MD on 02/19/18 at 0342. Scribe Documentation Reviewed: Yes Provider Attestation: The documentation as recorded by the Queenie calvo accurately reflects the service I personally performed and the decisions made by Gilmar hunt MD Status of Scribe Document: Viewed
[2018-02-18 23:24] LABS: ABS Basophils 0 10^3/ul (0-0.2); ABS Eosinophils 0 10^3/ul (0-0.6); ABS Lymphocytes 1.1 10^3/ul (1.0-4.8); ABS Monocytes 1.2 10^3/ul (0-0.8); ABS Neutrophils 4.9 10^3/ul (1.5-7.7); ABS Nucleated RBC 0 10^3/ul; Eosinophil % 0.4 %; Hematocrit 37 % (35-47); Hemoglobin 12.6 g/dl (12.0-16.0); Lymphocyte % 15.8 %; Mean Corpuscular HGB Conc 34 g/dl (31-36); Mean Corpuscular Hemoglobin 31 pg (27-31); Mean Corpuscular Volume 91 fL (80-97); Mean Platelet Volume 9.6 fL (7.4-10.4); Nucleated Red Blood Cells % 0; Platelet Count 147 10^3/ul (150-450); Red Cell Distribution Width 13 % (10.5-15); White Blood Count 7.3 10^3/ul (3.5-10.8)
[2018-02-18 23:38] LABS: BUN/Creatinine Ratio 15.2 (8-20); Potassium 4.1 mmol/L (3.5-5.0)
[2018-02-18 23:39] LABS: Albumin 4.1 g/dL (3.2-5.2); Albumin/Globulin Ratio 1.4 (1-3); Calcium 9.1 mg/dL (8.6-10.3); EGFR African American 110.1 (>60); Globulin 2.9 g/dL (2-4); Total Bilirubin 0.3 mg/dL (0.2-1.0)
[2018-02-19 00:16] LABS: Urine Appearance Clear; Urine Bacteria Absent (Absent); Urine Bilirubin Negative (Negative); Urine Blood 2+ (Negative); Urine Color Straw; Urine Glucose Negative (Negative); Urine Ketones Negative (Negative); Urine Nitrite Negative (Negative); Urine Protein Negative (Negative); Urine Red Blood Cell 1+(3-5/hpf) (Absent); Urine Specific Gravity 1.005 (1.010-1.030); Urine Squamous Epithelial Cell Present (Absent); Urine Urobilinogen Negative (Negative); Urine White Blood Cell Trace(0-5/hpf) (Absent)
[2018-02-19 01:12] VITALS: BP 107/57
[2018-02-21 12:57] LABS: EBV Capsid Ag IgG Ab Negative (Negative); EBV Capsid Ag IgM Ab Negative (Negative); Epstein-Barr Nuclear Antigen Negative (Negative)
== END 2018-02-19 01:11 | disposition home or self-care (01) ==
LOC: ED 22:44
DX: B34.9 Viral infection, unspecified (principal); R50.9 Fever, unspecified
CPT/HCPCS: 36415; 80053; 81003; 81015; 85025; 86308; 86664; 86665; 87086; 87651; 96360; 96361; 96374; 99283; A9270-GY

== ENCOUNTER 2018-07-16 11:30 | Emergency (ER) | payer BC ==
--- NOTE | 2018-07-16 11:55 | ED ---
Abdominal Pain/Female - HPI Summary HPI Summary: Pt is a 23 y/o F presenting to the ED with a chief complaint of lower abd pain since 07/13/18. She states she had sexual intercourse on 07/10/18 and did not urinate afterwards, and the next day experienced burning with urination and slight irritation to the groin area, which subsided. On 07/13/18, she began having lower abd pain and back pain with a high fever that continued into today. She denies nausea, vomiting, vaginal bleeding, vaginal discharge, or frequency of urination. - History of Current Complaint Chief Complaint: EDGeneral Stated Complaint: POSS UTI & BACK/ABD PAIN PER PT Time Seen by Provider: 07/16/18 11:44 Hx Obtained From: Patient Hx Last Menstrual Period: currently Onset/Duration: Sudden Onset, Lasting Days, Still Present Timing: Days Severity Initially: Mild Severity Currently: Moderate Pain Intensity: 6 Pain Scale Used: 0-10 Numeric Location: Suprapubic Radiates: Yes Radiates to: Back Character: Cramping Aggravating Factor(s): Nothing Alleviating Factor(s): Nothing Associated Signs and Symptoms: Positive: Fever, Back Pain, Urinary Symptoms. Negative: Vaginal Bleeding, Vaginal Discharge, Nausea, Vomiting Allergies/Adverse Reactions: Allergies Allergy/AdvReac Type Severity Reaction Status Date / Time Sulfa (Sulfonamide Allergy Hives Verified 07/16/18 11:34 Antibiotics) PMH/Surg Hx/FS Hx/Imm Hx Previously Healthy: Yes Endocrine/Hematology History: Denies: Hx Diabetes, Hx Thyroid Disease Cardiovascular History: Denies: Hx Hypercholesterolemia, Hx Hypertension, Hx Peripheral Vascular Disease Respiratory History: Reports: Hx Asthma - in childhood only Denies: Hx Chronic Obstructive Pulmonary Disease (COPD) GI History: Denies: Hx Ulcer Musculoskeletal History: Denies: Hx Arthritis, Hx Rheumatoid Arthritis, Hx Osteoporosis Sensory History: Denies: Hx Cataracts, Hx Contacts or Glasses, Hx Glaucoma Opthamlomology History: Denies: Hx Cataracts, Hx Contacts or Glasses, Hx Glaucoma Neurological History: Denies: Hx Headaches, Hx Seizures, Hx Transient Ischemic Attacks (TIA) Psychiatric History: Denies: Hx Anxiety, Hx Depression - Surgical History Surgery Procedure, Year, and Place: appendectomy Infectious Disease History: No Infectious Disease History: Denies: Hx Clostridium Difficile, Hx Hepatitis, Hx Human Immunodeficiency Virus (HIV), Hx of Known/Suspected MRSA, Hx Shingles, Hx Tuberculosis, Hx Known/ Suspected VRE, Hx Known/Suspected VRSA, History Other Infectious Disease, Traveled Outside the [place] in Last 30 Days - Family History Known Family History: Positive: Unknown - PT WAS ADOPTED - UNKNOWN FHx - Social History Alcohol Use: Occasionally Hx Substance Use: No Substance Use Type: Reports: None Hx Tobacco Use: No Smoking Status (MU): Never Smoked Tobacco Review of Systems Positive: Fever Positive: Abdominal Pain. Negative: Vomiting, Nausea Positive: burning. Negative: frequency, other - vaginal bleeding/discharge Positive: Myalgia - back pain All Other Systems Reviewed And Are Negative: Yes Physical Exam - Summary Physical Exam Summary: Appearance: Well appearing, no pain distress Skin: warm, dry, reflects adequate perfusion Head/face: normal Eyes: EOMI, ANNALEE ENT: normal Neck: supple, non-tender Respiratory: CTA, breath sounds present Cardiovascular: RRR, pulses symmetrical Abdomen: soft, tenderness in RLQ and LLQ toward the pelvis Musculoskeletal: normal, strength/ROM intact Neuro: normal, sensory motor intact, A&Ox3 Triage Information Reviewed: Yes Vital Signs On Initial Exam: Initial Vitals Temp Pulse Resp BP Pulse Ox 98.6 F 104 18 128/89 100 07/16/18 11:32 07/16/18 11:32 07/16/18 11:32 07/16/18 11:32 07/16/18 11:32 Vital Signs Reviewed: Yes Diagnostics - Vital Signs Vital Signs Temp Pulse Resp BP Pulse Ox 07/16/18 11:32 98.6 F 104 18 128/89 100 - Laboratory Result Diagrams: 07/16/18 11:57 07/16/18 11:56 Lab Statement: Any lab studies that have been ordered have been reviewed, and results considered in the medical decision making process. Abdominal Pain Fem Course/Dx - Course Course Of Treatment: Pt is a 23 y/o F presenting to the ED with a chief complaint of lower abd pain since 07/13/18. She reports one episode of burning while urinating with some irritation to the pubic area, which subsided. She then experienced lower abd pain and back pain the next day, alongside a fever. She denies nausea, vomiting, vaginal bleeding, vaginal discharge, or frequency of urination. On physical exam, the pt has tenderness to the RLQ and LLQ, toward the pelvis. Bloodwork and UA obtained. Pt will be d/c'ed with a dx of UTI. She is stable and agreeable with this plan. - Diagnoses Differential Diagnosis: Positive: Urinary Tract Infection Provider Diagnoses: UTI (urinary tract infection) Discharge - Sign-Out/Discharge Documenting (check all that apply): Patient Departure Patient Received Moderate/Deep Sedation with Procedure: No - Discharge Plan Condition: Stable Disposition: HOME Prescriptions: Ciprofloxacin TAB* [Cipro 500 MG TAB*] 500 mg PO BID #10 tab Patient Education Materials: Urinary Tract Infection in Women (ED) Referrals: [facility] [Outside] Additional Instructions: Please take your prescribed medications as instructed. Follow up with your primary care provider in 2-3 days. Return to the ED with any new or worsening symptoms. - Billing Disposition and Condition Condition: STABLE Disposition: Home - Attestation Statements Document Initiated by Shobha: Yes Documenting Scribe: Kirstin Boyd Provider For Whom Shobha is Documenting (Include Credential): Pb Wesley MD. Scribe Attestation: Kirstin Palmer scribed for Pb Wesley MD. on 07/16/18 at 1607. Scribe Documentation Reviewed: Yes Provider Attestation: The documentation as recorded by the Kirstin calvo accurately reflects the service I personally performed and the decisions made by Pb hunt MD. Status of Scribe Document: Viewed
[2018-07-16 12:03] LABS: Urine Appearance Clear; Urine Bacteria Absent (Absent); Urine Bilirubin Negative (Negative); Urine Blood 2+ (Negative); Urine Color Yellow; Urine Glucose Negative (Negative); Urine Ketones Negative (Negative); Urine Nitrite Negative (Negative); Urine Protein 1+(30 mg/dL) (Negative); Urine Red Blood Cell 3+(>10/hpf) (Absent); Urine Specific Gravity 1.018 (1.010-1.030); Urine Squamous Epithelial Cell Present (Absent); Urine Urobilinogen Negative (Negative); Urine White Blood Cell Trace(0-5/hpf) (Absent)
[2018-07-16 12:07] LABS: ABS Eosinophils 0.3 10^3/ul (0-0.6); ABS Lymphocytes 1.2 10^3/ul (1.0-4.8); ABS Monocytes 0.7 10^3/ul (0-0.8); ABS Neutrophils 7.9 10^3/ul (1.5-7.7); Eosinophil % 2.8 %; Hematocrit 40 % (35-47); Hemoglobin 13.6 g/dL (12.0-16.0); Lymphocyte % 11.5 %; Mean Corpuscular HGB Conc 34 g/dL (31-36); Mean Corpuscular Hemoglobin 31 pg (27-31); Mean Corpuscular Volume 91 fL (80-97); Mean Platelet Volume 9.7 fL (7.4-10.4); Platelet Count 164 10^3/uL (150-450); Red Blood Count 4.45 10^6 /uL (3.70-4.87); Red Cell Distribution Width 14 % (10.5-15); White Blood Count 10.1 10^3/uL (3.5-10.8)
[2018-07-16 12:24] LABS: ALT 12 U/L (7-52); AST 16 U/L (13-39); Albumin 4.3 g/dL (3.2-5.2); Albumin/Globulin Ratio 1.4 (1-3); Alkaline Phosphatase 50 U/L (34-104); Anion Gap 6 mmol/L (2-11); BUN/Creatinine Ratio 12.4 (8-20); Blood Urea Nitrogen 11 mg/dL (6-24); CO2 Carbon Dioxide 26 mmol/L (22-32); Calcium 9.6 mg/dL (8.6-10.3); Chloride 105 mmol/L (101-111); EGFR African American 95.1 (>60); EGFR Non-African American 78.6 (>60); Glucose 121 mg/dL (70-100); Potassium 4.2 mmol/L (3.5-5.0); Sodium 137 mmol/L (135-145); Total Protein 7.3 g/dL (6.4-8.9)
[2018-07-16 12:30] LABS: HCG Pregnancy < 0.60 mIU/mL
[2018-07-16 14:12] VITALS: BP 119/69
--- NOTE | 2018-07-18 06:11 | PN ---
Progress Note - Progress Note Date of Service: 07/16/18 Note: Urine culture final grew strep group B Sensitivities not routinely performed Patient was placed on Cipro prior to discharge Since to be sensitive to group B strep
== END 2018-07-16 14:11 | disposition home or self-care (01) ==
LOC: ED 11:30
DX: N39.0 Urinary tract infection, site not specified (principal); B95.1 Streptococcus, group B, as the cause of diseases classified elsewhere; R50.9 Fever, unspecified; Z88.2 Allergy status to sulfonamides
CPT/HCPCS: 36415; 80053; 81003; 81015; 83690; 84702; 85025; 87086; 87088; 99283

== ENCOUNTER 2018-11-12 14:49 | Emergency (ER) | payer BC ==
[2018-11-12 15:01] VITALS: BP 142/94
--- NOTE | 2018-11-12 15:23 | ED ---
Palpitations / Dysrhythmia - HPI Summary HPI Summary: 23-year-old woman comes in with a chief complaint of palpitations that are accompanied by shortness of breath lightheadedness and chest tightness. Started 2 days ago. Feels lightheaded when she stands up. Reports the palpitations being like extra beats. No upper respiratory tract infection symptoms. No fevers or chills. No calf pain no calf swelling. Patient is on control pills. - History of Current Complaint Chief Complaint: UCChestPain Time Seen by Provider: 11/12/18 15:05 - Allergy/Home Medications Allergies/Adverse Reactions: Allergies Allergy/AdvReac Type Severity Reaction Status Date / Time Sulfa (Sulfonamide Allergy Hives Verified 11/12/18 15:01 Antibiotics) Home Medications: Home Medications Iud (Copper)* 11/12/18 [History] PMH/Surg Hx/FS Hx/Imm Hx Previously Healthy: Yes Endocrine/Hematology History: Denies: Hx Diabetes, Hx Thyroid Disease Cardiovascular History: Denies: Hx Hypercholesterolemia, Hx Hypertension, Hx Peripheral Vascular Disease Respiratory History: Reports: Hx Asthma - in childhood only Denies: Hx Chronic Obstructive Pulmonary Disease (COPD) GI History: Denies: Hx Ulcer Musculoskeletal History: Denies: Hx Arthritis, Hx Rheumatoid Arthritis, Hx Osteoporosis Sensory History: Denies: Hx Cataracts, Hx Contacts or Glasses, Hx Glaucoma Opthamlomology History: Denies: Hx Cataracts, Hx Contacts or Glasses, Hx Glaucoma Neurological History: Denies: Hx Headaches, Hx Seizures, Hx Transient Ischemic Attacks (TIA) Psychiatric History: Denies: Hx Anxiety, Hx Depression - Surgical History Surgery Procedure, Year, and Place: appendectomy 2017 Infectious Disease History: No Infectious Disease History: Denies: Hx Clostridium Difficile, Hx Hepatitis, Hx Human Immunodeficiency Virus (HIV), Hx of Known/Suspected MRSA, Hx Shingles, Hx Tuberculosis, Hx Known/ Suspected VRE, Hx Known/Suspected VRSA, History Other Infectious Disease, Traveled Outside the [place] in Last 30 Days - Family History Known Family History: Positive: Unknown - PT WAS ADOPTED - UNKNOWN FHx - Social History Alcohol Use: Occasionally Hx Substance Use: No Substance Use Type: Reports: None Hx Tobacco Use: No Smoking Status (MU): Never Smoked Tobacco Review of Systems Positive: Other Eyes: Negative ENT: Negative Positive: Palpitations, Chest Pain Positive: Shortness Of Breath Gastrointestinal: Negative Musculoskeletal: Negative Skin: Negative Neurological: Negative Psychological: Normal All Other Systems Reviewed And Are Negative: Yes Physical Exam Triage Information Reviewed: Yes Vital Signs On Initial Exam: Initial Vitals Temp Pulse Resp BP Pulse Ox 97.9 F 84 18 142/94 100 11/12/18 14:53 11/12/18 14:53 11/12/18 14:53 11/12/18 14:53 11/12/18 14:53 Vital Signs Reviewed: Yes Appearance: Positive: No Pain Distress Skin: Positive: Warm, Skin Color Reflects Adequate Perfusion Eyes: Positive: Normal Neck: Positive: Supple Respiratory/Lung Sounds: Positive: Clear to Auscultation Cardiovascular: Positive: RRR Musculoskeletal: Positive: Normal, Strength/ROM Intact. Negative: Kary Sign Left, Kary Sign Right, Edema Left, Edema Right Neurological: Positive: Normal, Sensory/Motor Intact, Alert, Oriented to Person Place, Time Psychiatric: Positive: Normal AVPU Assessment: Alert Diagnostics - Vital Signs Vital Signs Temp Pulse Resp BP Pulse Ox 11/12/18 14:53 97.9 F 84 18 142/94 100 - Laboratory Lab Statement: Any lab studies that have been ordered have been reviewed, and results considered in the medical decision making process. Course/Dx - Course Course Of Treatment: Review the EKG with the patient. No ectopy or ischemic changes seen on EKG. With symptomatic palpitations I recommended further evaluation in the emergency department. Patient declined transport by ambulance will go by POV. - Diagnoses Provider Diagnoses: Palpitations, Lightheaded, Chest tightness Discharge ED - Sign-Out/Discharge Documenting (check all that apply): Patient Departure All imaging exams completed and their final reports reviewed: No Studies - Discharge Plan Condition: Stable Disposition: HOME-RECOMMEND TO ED Referrals: [facility] [Outside] Additional Instructions: GO DIRECTLY TO THE EMERGENCY DEPARTMENT FOR FURTHER EVALUATION OF YOUR PALPITATIONS, CHEST PRESSURE AND LIGHTHEADEDNESS. - Billing Disposition and Condition Condition: STABLE Disposition: Home-Recommend to ED
== END 2018-11-12 16:10 | disposition home health service (06) ==
LOC: UCEAST 14:49
DX: R00.2 Palpitations (principal); R42 Dizziness and giddiness; R07.9 Chest pain, unspecified; Z88.2 Allergy status to sulfonamides
CPT/HCPCS: 93005; 99212; G0463

== ENCOUNTER 2018-11-12 16:29 | Emergency (ER) | payer BC ==
[2018-11-12 16:56] LABS: ABS Eosinophils 0.1 10^3/ul (0-0.6); ABS Lymphocytes 1.8 10^3/ul (1.0-4.8); ABS Monocytes 0.6 10^3/ul (0-0.8); ABS Neutrophils 2.9 10^3/ul (1.5-7.7); Hematocrit 41 % (35-47); Hemoglobin 13.6 g/dL (12.0-16.0); Lymphocyte % 33.8 %; Mean Corpuscular HGB Conc 33 g/dL (31-36); Mean Corpuscular Hemoglobin 30 pg (27-31); Mean Corpuscular Volume 91 fL (80-97); Mean Platelet Volume 9.2 fL (7.4-10.4); Nucleated Red Blood Cells % 0.1; Platelet Count 189 10^3/uL (150-450); Red Blood Count 4.48 10^6 /uL (3.70-4.87); Red Cell Distribution Width 13 % (10-15); White Blood Count 5.5 10^3/uL (3.5-10.8)
[2018-11-12 17:09] LABS: INR 1.06 (0.82-1.09)
[2018-11-12 17:23] LABS: Albumin 4.8 g/dL (3.2-5.2); Calcium 9.7 mg/dL (8.6-10.3); Potassium 4.1 mmol/L (3.5-5.0); Total Bilirubin 0.8 mg/dL (0.2-1.0)
[2018-11-12 17:29] LABS: Albumin/Globulin Ratio 1.8 (1-3); BUN/Creatinine Ratio 15.2 (8-20); EGFR African American 91.5 (>60); EGFR Non-African American 75.6 (>60); Globulin 2.7 g/dL (2-4); Total Protein 7.5 g/dL (6.4-8.9)
--- NOTE | 2018-11-12 20:30 | ED ---
Palpitations / Dysrhythmia - HPI Summary HPI Summary: This pt is a 23 y/o female presenting to [facility] c/o persistent palpitations for the past 2 days. Pt describes palpations characterized as chest fluttering. She states she has had palpations in the past that have been associated with stress but notes they usually resolve on their own. Pt reports her palpitations this time have not resolved yet and have been persistent. Today while at work pt felt weak and could not stand up without feeling like fainting. Additionally she experiences tingling in her extremities, SOB, and chest tightness. Denies drinking any energy drinks but does admit to caffeine on occasion. Pt has had a holter monitor in the past but notes it was normal because she didn 't have any episodes of palpitations. She has an upcoming appointment tomorrow morning to see her registered travel nurse at [place]. LMP: 1 week ago. - History of Current Complaint Chief Complaint: EDChestPainROMI Time Seen by Provider: 11/12/18 20:23 Hx Obtained From: Patient Onset/Duration: Lasting Days, Still Present Timing: Constant Severity Initially: Worse Since: Character: Fluttering Aggravating: Nothing Alleviating: Nothing Associated Signs & Symptoms: Lightheadedness - and SOB, weakness, tingling, chest tight - Allergy/Home Medications Allergies/Adverse Reactions: Allergies Allergy/AdvReac Type Severity Reaction Status Date / Time Sulfa (Sulfonamide Allergy Hives Verified 11/12/18 16:42 Antibiotics) PMH/Surg Hx/FS Hx/Imm Hx Endocrine/Hematology History: Denies: Hx Diabetes, Hx Thyroid Disease Cardiovascular History: Denies: Hx Hypercholesterolemia, Hx Hypertension, Hx Peripheral Vascular Disease Respiratory History: Reports: Hx Asthma - in childhood only Denies: Hx Chronic Obstructive Pulmonary Disease (COPD) GI History: Denies: Hx Ulcer Musculoskeletal History: Denies: Hx Arthritis, Hx Rheumatoid Arthritis, Hx Osteoporosis Sensory History: Denies: Hx Cataracts, Hx Contacts or Glasses, Hx Glaucoma Opthamlomology History: Denies: Hx Cataracts, Hx Contacts or Glasses, Hx Glaucoma Neurological History: Denies: Hx Headaches, Hx Seizures, Hx Transient Ischemic Attacks (TIA) Psychiatric History: Denies: Hx Anxiety, Hx Depression - Surgical History Surgical History: Yes Surgery Procedure, Year, and Place: appendectomy 2017 Infectious Disease History: No Infectious Disease History: Denies: Hx Clostridium Difficile, Hx Hepatitis, Hx Human Immunodeficiency Virus (HIV), Hx of Known/Suspected MRSA, Hx Shingles, Hx Tuberculosis, Hx Known/ Suspected VRE, Hx Known/Suspected VRSA, History Other Infectious Disease, Traveled Outside the [place] in Last 30 Days - Family History Known Family History: Positive: Unknown - PT WAS ADOPTED - UNKNOWN FHx - Social History Alcohol Use: Occasionally Hx Substance Use: No Substance Use Type: Reports: None Hx Tobacco Use: No Smoking Status (MU): Never Smoked Tobacco Review of Systems Negative: Fever, Chills Positive: Palpitations, Chest Pain Positive: Shortness Of Breath Neurological: Other - POSITIVE: lightheadedness Positive: Weakness, Paresthesia All Other Systems Reviewed And Are Negative: Yes Physical Exam - Summary Physical Exam Summary: VITAL SIGNS: Reviewed. GENERAL: Patient is a well-developed and nourished female who is lying comfortable in the stretcher. Patient is not in any acute respiratory distress. HEAD AND FACE: No signs of trauma. No ecchymosis, hematomas or skull depressions. No sinus tenderness. EYES: PERRLA, EOMI x 2, No injected conjunctiva, no nystagmus. EARS: Hearing grossly intact. Ear canals and tympanic membranes are within normal limits. MOUTH: Oropharynx within normal limits. NECK: Supple, trachea is midline, no adenopathy, no JVD, no carotid bruit, no c- spine tenderness, neck with full ROM. CHEST: Symmetric, no tenderness at palpation LUNGS: Clear to auscultation bilaterally. No wheezing or crackles. CVS: Regular rate and rhythm, S1 and S2 present, no murmurs or gallops appreciated. ABDOMEN: Soft, non-tender. No signs of distention. No rebound no guarding, and no masses palpated. Bowel sounds are normal. EXTREMITIES: FROM in all major joints, no edema, no cyanosis or clubbing. NEURO: Alert and oriented x 3. No acute neurological deficits. Speech is normal and follows commands. SKIN: Dry and warm Triage Information Reviewed: Yes Vital Signs On Initial Exam: Initial Vitals Temp Pulse Resp BP Pulse Ox 98.3 F 69 14 136/91 100 11/12/18 16:39 11/12/18 16:39 11/12/18 16:39 11/12/18 16:39 11/12/18 16:39 Vital Signs Reviewed: Yes Diagnostics - Vital Signs Vital Signs Temp Pulse Resp BP Pulse Ox 11/12/18 19:30 98.4 F 69 16 120/74 98 11/12/18 16:39 98.3 F 69 14 136/91 100 - Laboratory Lab Results: Lab Results 11/12/18 11/12/18 11/12/18 Range/Units 16:49 16:49 16:49 WBC 5.5 (3.5-10.8) 10^3/uL RBC 4.48 (3.70-4.87) 10^6 /uL Hgb 13.6 (12.0-16.0) g/dL Hct 41 (35-47) % MCV 91 (80-97) fL MCH 30 (27-31) pg MCHC 33 (31-36) g/dL RDW 13 (10-15) % Plt Count 189 (150-450) 10^3/uL MPV 9.2 (7.4-10.4) fL Neut % (Auto) 54.0 % Lymph % (Auto) 33.8 % [place] % (Auto) 10.7 % Eos % (Auto) 1.0 % Baso % (Auto) 0.5 % Absolute Neuts (auto) 2.9 (1.5-7.7) 10^3/ul Absolute Lymphs (auto) 1.8 (1.0-4.8) 10^3/ul Absolute Monos (auto) 0.6 (0-0.8) 10^3/ul Absolute Eos (auto) 0.1 (0-0.6) 10^3/ul Absolute Basos (auto) 0.0 (0-0.2) 10^3/ul Absolute Nucleated RBC 0.0 10^3/ul Nucleated RBC % 0.1 INR (Anticoag Therapy) 1.06 (0.82-1.09) Sodium 139 (135-145) mmol/L Potassium 4.1 (3.5-5.0) mmol/L Chloride 105 (101-111) mmol/L Carbon Dioxide 27 (22-32) mmol/L Anion Gap 7 (2-11) mmol/L BUN 14 (6-24) mg/dL Creatinine 0.92 (0.51-0.95) mg/dL Est GFR ( Amer) 91.5 (>60) Est GFR (Non-Af Amer) 75.6 (>60) BUN/Creatinine Ratio 15.2 (8-20) Glucose 92 (70-100) mg/dL Calcium 9.7 (8.6-10.3) mg/dL Total Bilirubin 0.80 (0.2-1.0) mg/dL AST 17 (13-39) U/L ALT 10 (7-52) U/L Alkaline Phosphatase 60 (34-104) U/L Troponin I 0.00 (<0.04) ng/mL Total Protein 7.5 (6.4-8.9) g/dL Albumin 4.8 (3.2-5.2) g/dL Globulin 2.7 (2-4) g/dL Albumin/Globulin Ratio 1.8 (1-3) 11/12/18 Range/Units 19:57 WBC (3.5-10.8) 10^3/uL RBC (3.70-4.87) 10^6 /uL Hgb (12.0-16.0) g/dL Hct (35-47) % MCV (80-97) fL MCH (27-31) pg MCHC (31-36) g/dL RDW (10-15) % Plt Count (150-450) 10^3/uL MPV (7.4-10.4) fL Neut % (Auto) % Lymph % (Auto) % [place] % (Auto) % Eos % (Auto) % Baso % (Auto) % Absolute Neuts (auto) (1.5-7.7) 10^3/ul Absolute Lymphs (auto) (1.0-4.8) 10^3/ul Absolute Monos (auto) (0-0.8) 10^3/ul Absolute Eos (auto) (0-0.6) 10^3/ul Absolute Basos (auto) (0-0.2) 10^3/ul Absolute Nucleated RBC 10^3/ul Nucleated RBC % INR (Anticoag Therapy) (0.82-1.09) Sodium (135-145) mmol/L Potassium (3.5-5.0) mmol/L Chloride (101-111) mmol/L Carbon Dioxide (22-32) mmol/L Anion Gap (2-11) mmol/L BUN (6-24) mg/dL Creatinine (0.51-0.95) mg/dL Est GFR ( Amer) (>60) Est GFR (Non-Af Amer) (>60) BUN/Creatinine Ratio (8-20) Glucose (70-100) mg/dL Calcium (8.6-10.3) mg/dL Total Bilirubin (0.2-1.0) mg/dL AST (13-39) U/L ALT (7-52) U/L Alkaline Phosphatase (34-104) U/L Troponin I 0.00 (<0.04) ng/mL Total Protein (6.4-8.9) g/dL Albumin (3.2-5.2) g/dL Globulin (2-4) g/dL Albumin/Globulin Ratio (1-3) Result Diagrams: 11/12/18 16:49 11/12/18 16:49 Lab Statement: Any lab studies that have been ordered have been reviewed, and results considered in the medical decision making process. - EKG 16:34 Cardiac Rate: NL - at 70 bpm EKG Rhythm: Sinus Rhythm Summary of EKG Findings: Sinus rhythm at [address] elevations. Normal axis. Course/Dx - Course Assessment/Plan: Blood test results without any significant abnormality. Two troponins 4 hours apart are both 0.00. The heart score is equal to his 1 therefore no significant risk for acute coronary syndrome. The patient is also not hypoxic or tachycardic and therefore I have no suspicion for PE. Patient will be discharged home with follow-up from her registered travel nurse tomorrow as scheduled. The patient is hemodynamically stable, alert oriented 3. - Diagnoses Provider Diagnoses: Palpitations Discharge ED - Sign-Out/Discharge Documenting (check all that apply): Patient Departure - Discharge home Patient Received Moderate/Deep Sedation with Procedure: No - Discharge Plan Condition: Stable Disposition: HOME Patient Education Materials: Heart Palpitations (ED) Referrals: Yajaira Anderson MD [Primary Care Provider] - Raulito Mota MD [Medical Doctor] - Additional Instructions: Follow up with your registered travel nurse at [place] as scheduled tomorrow. You may also follow up with Dr. Mota, registered travel nurse. RETURN TO THE EMERGENCY DEPARTMENT FOR ANY WORSENING OR NEW SYMPTOMS. - Billing Disposition and Condition Condition: STABLE Disposition: Home - Attestation Statements Document Initiated by Scribe: Yes Documenting Scribe: Rhianna Briceno Provider For Whom Scribe is Documenting (Include Credential): Zach Tapia MD Scribe Attestation: I, Rhianna Briceno, scribed for Zach Tapia MD on 11/12/18 at 2146. Scribe Documentation Reviewed: Yes Provider Attestation: The documentation as recorded by the [email or web address] accurately reflects the service I personally performed and the decisions made by me, Zach Tapia MD Status of Scribe Document: Viewed
[2018-11-12 20:47] VITALS: BP 134/89
== END 2018-11-12 20:46 | disposition home or self-care (01) ==
LOC: ED 16:29
DX: R00.2 Palpitations (principal); R06.02 Shortness of breath; Z88.2 Allergy status to sulfonamides
CPT/HCPCS: 36415; 80053; 84484; 85025; 85610; 99283

== ENCOUNTER 2018-12-22 17:19 | Emergency (ER) | payer BC ==
--- OUTSIDE RECORDS SUMMARY | 2018-12-22 17:24 | XMS REPORT | Summary of Care ---
:1995 Author Organization [facility] Address 1 [facility] [place] [address] Care Team Providers Name Role Phone Yajaira Anderson MD Primary Care Provider Reason for Visit Reason Comments Urinary Tract Infection s/s of UTI started wed am; increased burning withurination and increased frequency, last night started with lower back pain, denies fevers, cough or runny nose at this time. Encounter Details Date Type Department Care Team Description 11/17/2018 Office Visit [facility] [place], Acute cystitis Practice Yajaira Mishra MD without hematuria [address] [facility] (Primary Dx) [place] [address] [place] [address] [phone] Allergies Active Allergy Reactions Severity Noted Date Comments Sulfa Antibiotics Anaphylaxis, Hives 11/07/2017 documented as of this encounter (statuses as of 11/17/2018) Medications Medication Sig Dispensed Refills Start Date End Date Status Multiple Vitamin Take by 0 Active (MULTI-VITAMIN DAILY PO) mouth. Probiotic Product Take by 0 Active (PROBIOTIC-10) Oral Cap mouth. nitrofurantoin Take 1 Cap by 14 Cap 0 11/17/2018 11/24/2018 Active monohydrate macrocrystal mouth TWICE (MACROBID) 100 MG Oral DAILY for 7 CapIndications: Acute days. cystitis without hematuria documented as of this encounter (statuses as of 11/17/2018) Active Problems No known active problemsdocumented as of this encounter (statuses as of 2018) Immunizations Name Administration Dates Next Due DTAP 06/04/1999 DTAP Vaccine 05/20/1999, 09/18/1996, 1995, 1995, 1995 HIB 09/18/1996, 1995, 1995, 1995 Hepatitis B Vaccine 1995, 1995, 1995 Influenza (IM) Preservative Free 11/07/2017 MMR 06/04/1999 MMR VACCINE 05/20/1999, 09/18/1996 OPV 06/04/1999 Polio - Inactivated Vaccine 05/20/1999, 1995, 1995, 1995 TDAP Vaccine 05/22/2006 Varicella Vaccine Live 02/26/2014, 1998 documented as of this encounter Social History Tobacco Use Types Packs/Day Years Used Date Never Smoker Smokeless Tobacco: Never Used Alcohol Use Drinks/Week oz/Week Comments Yes rare, 1-2/month Sex Assigned at Date Recorded Not on file Job Start Date Occupation Industry Not on file Not on file Not on file Travel History Travel Start Travel End No recent travel history available. documented as of this encounter Last Filed Vital Signs Vital Sign Reading Time Taken Comments Blood Pressure 118/60 11/17/2018 9:49 AM EDT Pulse 72 11/17/2018 9:49 AM EDT Temperature 37.4 11/17/2018 9:49 AM EDT C (99.3 F) Respiratory Rate - - Oxygen Saturation 98% 11/17/2018 9:49 AM EDT Inhaled Oxygen Concentration - - Weight 66.2 kg (146 lb) 11/17/2018 9:49 AM EDT Height 177.8 cm (5' 10") 11/17/2018 9:49 AM EDT Body Mass Index 20.95 11/17/2018 9:49 AM EDT documented in this encounter Patient Instructions Patient InstructionsYajaira Anderson MD - 11/17/2018 9:40 AM EDTYou Have an apparent urinary tract infection. I sent in nitrofurantion to take twice daily x 7 days. Stay hydrated. Return if worsening symptoms, fevers, chills, bloody urine documented in this encounter Progress Notes Yajaira Anderson MD - 11/17/2018 9:40 AM EDT PATIENT: Ana Martino : 1995 DATE OF SERVICE: 11/17/2018 CHIEF COMPLAINT: Chief Complaint Patient presents with Urinary Tract Infection s/s of UTI started wed am; increased burning withurination and increased frequency, last night started with lower back pain, denies fevers, cough or runny nose at this time. Subjective HISTORY OF PRESENT ILLNESS: Ana Martino is a 23-y.o. female. Nursing Notes: Rohit Huitron LPN 11/17/2018 9:52 AM Signed Chief Complaint Patient presents with Urinary Tract Infection s/s of UTI started wed am; increased burning withurination and increased frequency, last night started with lower back pain, denies fevers, cough or runny nose at this time. Rohit Huitron LPN Here for possible urinary tract infection Dysuria The history is provided by the patient. No sign language translator was used. This is a new problem. Thecurrent episode started yesterday. The problem has been gradually worsening. The quality of the painis described as burning and stinging. The pain is mild. There has been no fever. Associated symptomsinclude discharge, frequency and urgency. Pertinent negatives include no chills, no sweats, no nausea, no vomiting, no hematuria, no hesitancy, no possible and no flank pain. Her past medicalhistory is significant for recurrent UTIs. Her past medical history does not include kidney stones. Past medical history comments: last uti a year ago. Past Medical History: Diagnosis Date Anxiety Asthma as child, and in severe cold weather. Depression as a teen, tx with therapy Headache disorder migrain, no aura Family History Adopted: Yes Family history unknown: Yes Current Outpatient Medications Medication Sig Multiple Vitamin (MULTI-VITAMIN DAILY PO) Take by mouth. nitrofurantoin monohydrate macrocrystal (MACROBID) 100 MG Oral Cap Take 1 Cap by mouth TWICE DAILY for 7 days. Probiotic Product (PROBIOTIC-10) Oral Cap Take by mouth. No current facility-administered medications for this visit. Allergies Allergen Reactions Sulfa Antibiotics Anaphylaxis and Hives Social History Socioeconomic History Marital status: Single Spouse name: Not on file Number of children: Not on file Years of education: Not on file Highest education level: Not on file Occupational History Not on file Social Needs Financial resource strain: Not on file Food insecurity: Worry: Not on file Inability: Not on file Transportation needs: Medical: Not on file Non-medical: Not on file Tobacco Use Smoking status: Never Smoker Smokeless tobacco: Never Used Substance and Sexual Activity Alcohol use: Yes Comment: rare, 1-2/month Drug use: No Sexual activity: Yes Partners: Male control/protection: I.U.D. Lifestyle Physical activity: Days per week: Not on file Minutes per session: Not on file Stress: Not on file Relationships Social connections: Talks on phone: Not on file Gets together: Not on file Attends faith service: Not on file Active member of club or organization: Not on file Attends meetings of clubs or organizations: Not on file Relationship status: Not on file Intimate partner violence: Fear of current or ex partner: Not on file Emotionally abused: Not on file Physically abused: Not on file Forced sexual activity: Not on file Other Topics Concern Back Care Not Asked Bike Helmet Not Asked Blood Transfusions No Caffeine Concern No Exercise Yes Hobby Hazards No International Travel No Service No Occupational Exposure Yes Seat Belt Yes Self-Exams Yes Sleep Concern No Special Diet No Comment: avoids red meat and dairy Stress Concern No Weight Concern No 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 HENT: Negative for congestion, ear pain and sore throat. Eyes: Negative for blurred vision, double vision and redness. Respiratory: Negative for cough, hemoptysis, shortness of breath and wheezing. Cardiovascular: Negative for chest pain, palpitations, orthopnea, claudication and leg swelling. Gastrointestinal: Negative for abdominal pain, blood in stool, constipation, diarrhea, melena, nausea and vomiting. Genitourinary: Positive for dysuria, frequency and urgency. Negative for flank pain, hematuria and hesitancy. Skin: Negative for rash. Neurological: Negative for tremors, focal weakness and headaches. Psychiatric/Behavioral: Negative for depression. Objective PHYSICAL EXAM: VITALS: BP 118/60 (BP Location: Left arm, Patient Position: Sitting) | Pulse 72 | Temp 99.3 F(37.4 C) | Ht 5' 10" (1.778 m) | Wt 146 lb (66.2 kg) | SpO2 98% | BMI 20.95 kg/m Body mass index is 20.95 kg/m. Physical Exam Constitutional: Appearance: She is well-developed. HENT: Head: Normocephalic and atraumatic. Eyes: Conjunctiva/sclera: Conjunctivae normal. Neck: Musculoskeletal: Normal range of motion and neck supple. Thyroid: No thyromegaly. Cardiovascular: Rate and Rhythm: Normal rate and regular rhythm. Heart sounds: Normal heart sounds. Pulmonary: Effort: Pulmonary effort is normal. Breath sounds: Normal breath sounds. No wheezing or rales. Abdominal: General: Bowel sounds are normal. There is no distension. Palpations: Abdomen is soft. There is no mass. Tenderness: There is no tenderness. There is no guarding or rebound. Lymphadenopathy: Cervical: No cervical adenopathy. Skin: General: Skin is warm and dry. Coloration: Skin is not jaundiced. Neurological: Mental Status: She is alert and oriented to person, place, and time. Sensory: Sensory deficit: .lastpoct. Coordination: Coordination normal. Psychiatric: Behavior: Behavior normal. Thought Content: Thought content normal. Judgment: Judgment normal. ASSESSMENT / IMPRESSION/Plan: ICD-9-CM ICD-10-CM 1. Acute cystitis without hematuria 595.0 N30.00 nitrofurantoin monohydrate macrocrystal (MACROBID) 100 MG Oral Cap URINE CULTURE (C&S) Urine dip shows moderate leukoctyes, abnormal Patient Instructions You Have an apparent urinary tract infection. I sent in nitrofurantion to take twice daily x 7 days. Stay hydrated. Return if worsening symptoms, fevers, chills, bloody urine Author: Yajaira Anderson MD 11/17/2018 10:14 documented in this encounter Plan of Treatment Date Type Specialty Care Team Description 11/28/2018 Orders Only Cardiology 11/28/2018 Nurse/Clinical Support Internal Medicine 12/10/2018 Office [place] [address] [place], [place] [id number] [phone] Name Type Priority Associated Diagnoses Order Schedule URINE CULTURE (C&S) Lab Routine Acute cystitis without 1 Occurrences starting hematuria 11/17/2018 until 05/16/2019 Health Maintenance Due Date Last Done Comments CHLAMYDIA SCREENING 1995 PAP SMEAR 1995 HPV IMMUNIZATION SERIES (1 - 05/18/2010 Female 3-dose series) INFLUENZA VACCINE (#1) 2018 11/07/2017 DEPRESSION SCREENING 11/14/2019 11/13/2018 MENINGOCOCCAL VACCINE IMM Aged Out No longer eligible based on patient's age to complete this topic PNEUMOCOCCAL 0-64 YRS Aged Out No longer eligible based on patient's age to complete this topic documented as of this encounter Results Not on filedocumented in this encounter Visit Diagnoses Diagnosis Acute cystitis without hematuria - Primary Acute cystitis documented in this encounter Insurance Payer Benefit Plan / Subscriber ID Effective Dates Phone Address Type Group BCBS NATIONAL BCBS NATIONAL xxxxxxxxx 2013-Present Blue Cross/Blue Shield documented as of this encounter
--- OUTSIDE RECORDS SUMMARY | 2018-12-22 17:24 | XMS REPORT | Summary of Care ---
:[address] [facility] Address 1 [facility] [place] [address] Care Team Providers Name Role Phone Yajiara Anderson MD Primary Care Provider Reason for Referral Refer to Department Only (Routine) Status Reason Specialty Diagnoses / Referred By Referred To Procedures Contact Contact Authorized CARDIOLOGY / Diagnoses Palpitations Lida Anderson [facility] Yajaira Mishra MD Cardiology [address] [place] [address] [place] [address] [address] Phone: [place], [place] [phone] Fax: Diagnostic Testing (Routine) Status Reason Specialty Diagnoses / Referred By Referred To Procedures Contact Contact Pending Review Diagnoses Palpitations Monica, Procedures ECHOCARDIOGRAM TTE Yajaira Mishra MD [address] [place] [id number] Reason for Visit Reason Comments Hospital Follow Up ER visit yesterday Encounter Details Date Type Department Care Team Description 11/13/2018 Office Visit [facility] Palpitations (Primary Dx) ; Practice Yajaira Mishra MD Vegan diet; [address] [place] [address] Fatigue, unspecified type [place], [place] [id number] [place] [address] [phone] Allergies Active Allergy Reactions Severity Noted Date Comments Sulfa Antibiotics Anaphylaxis, Hives 11/07/2017 documented as of this encounter (statuses as of 11/13/2018) Medications Medication Sig Dispensed Refills Start Date End Date Status Multiple Vitamin Take by mouth. 0 Active (MULTI-VITAMIN DAILY PO) Probiotic Product Take by mouth. 0 Active (PROBIOTIC-10) Oral Cap documented as of this encounter (statuses as of 11/13/2018) Active Problems No known active problemsdocumented as [...] Sign Reading Time Taken Comments Blood Pressure 102/60 11/13/2018 10:44 AM EDT Pulse 85 11/13/2018 10:44 AM EDT Temperature 36.7 11/13/2018 10:44 AM EDT C (98 F) Respiratory Rate - - Oxygen Saturation 98% 11/13/2018 10:44 AM EDT Inhaled Oxygen Concentration - - Weight 65.8 kg (145 lb) 11/13/2018 10:44 AM EDT Height 179.1 cm (5' 10.5") 11/13/2018 10:44 AM EDT Body Mass Index 20.51 11/13/2018 10:44 AM EDT documented in this encounter Patient Instructions Patient InstructionsYajaira Anderson MD - 11/13/2018 10:40 AM EDTI reviewed your ER report, laboratory tests and ECG: normal. I ordered additional laboratory tests today: TSH. FT4, and B12/Folate. I will send results when in. I also ordered an echocardiogram, Holter and cardiology consult for your symptomatic palpitations. Hopefully we can catch an episode when you are wearing the Holter. ER is recommended for sever symptom as you did yesterday. Stay hydrated, watch for any patterns that bring on your symptoms. 11: 45 AM EDT documented in this encounter Progress Notes Yajaira Anderson MD - 11/13/2018 10:40 AM EDT Nursing Notes: Jaja Bundy LPN 11/13/2018 11:05 AM Signed Chief Complaint Patient presents with Hospital Follow Up ER visit yesterday Chief Complaint: Ana Martino is a 23-y.o. female who presents for palpitations, shortness of breath, chest pressure, yesterday lightheaded during an episode, so went to the ER yesterday. History of Present Illness/ROS: Patient presents with palpitations and shortness of breath. It feels like a fluttering, sometimes chest feels heavy. The symptoms are of severe severity, occuring intermittently and lasting 1-2 hours per episode. It at least once a week. They tend to occur while with rest and after activity, no pattern. Cardiac risk factors include: none known Aggravating factors: none Relieving factors: Lying down Associated signs and symptoms: has complaint(s) of chest pain, dyspnea, near- syncope, fatigue Max pulse 120-130 when she has checked, but often 80-90, but feels fluttery/ hard. Feels anxous after symptioms but not prior, does not think it is anxiety ER report from [facility] yesterday, and studies reviewed: laboratory tests normal, troponin 0, CBC, CMP normal. TSH not done. ECG: NSR, rate 70 She also complains of frequent fatigue, is vegan so her mom suggested she ask for a B12 check. ECG: NSR Review of Systems - General ROS: positive for - fatigue negative for - chills, fever or weight loss Psychological ROS: has hx of anxiety but not currently, only feels anxious after she has the palpitations Respiratory ROS: no cough, shortness of breath, or wheezing Cardiovascular ROS: no chest pain or dyspnea on exertion, but during prolonged palpitations has chest pressure and it can be hard to breat. Denies diaphoresis , nausea during. No leg edema. Gastrointestinal ROS: no abdominal pain, change in bowel habits, or black or bloody stools Genito-Urinary ROS: no dysuria, trouble voiding, or hematuria Neurological ROS: negative for - confusion or headaches Dermatological ROS: negative for - rash .lastv Past Medical History: Diagnosis Date Anxiety Asthma as child, and in severe cold weather. Depression as a teen, tx with therapy Headache disorder migrain, no aura Past Surgical History: Procedure Laterality Date DE APPENDECTOMY 2017 Current Outpatient Medications: Multiple Vitamin (MULTI-VITAMIN DAILY PO), Take by mouth., Disp: , Rfl: Probiotic Product (PROBIOTIC-10) Oral Cap, Take by mouth., Disp: , Rfl: Allergies Allergen Reactions Sulfa Antibiotics Anaphylaxis and [...] No Sexual activity: Yes Partners: Male control/protection: IUD Lifestyle Physical activity: Days per week: Not on file Minutes per session: Not on file Stress: Not on file Relationships Social connections: Talks on phone: Not on file Gets together: Not on file Attends episcopal service: Not on file Active member of [...] Concern No 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[employer], 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,a [place] Family History Adopted: Yes Family history unknown: Yes PHYSICAL EXAMINATION: BP 102/60 (BP Location: Right arm, Patient Position: Sitting) | Pulse 85 | Temp 98 F (36.7 C) (Tympanic) | Ht 5' 10.5" (1.791 m) | Wt 145 lb ( 65.8 kg) | SpO2 98% | BMI 20.51 kg/m Physical Examination: General appearance - alert, well appearing, and in no distress Mental status - alert, oriented to person, place, and time, normal mood, behavior, speech, dress, motor activity, and thought processes Eyes - pupils equal and reactive, sclera anicteric Neck - supple, no cervical or supraclavicular adenopathy, carotids upstroke normal bilaterally, no bruits, thyroid exam: thyroid is normal in size without nodules or tenderness, no neck masses palpated. Chest/Lungs - clear to auscultation, no wheezes, rales or rhonchi, symmetric air entry, good aeration Heart - normal rate, regular rhythm, normal S1, S2, no murmurs, rubs, clicks or gallops Abdomen - soft, non tender on palpation, nondistended, no masses or hepatosplenomegaly, bowel soundsnormal, normal to percussion, no guarding or rebound. No costervertebral angle tenderness Neurological - alert, oriented, normal speech, no gross focal findings or movement disorder noted Extremities - dorsalis pedis pulses normal, no pedal edema, no clubbing or cyanosis ASSESSMENT/PLAN: ICD-9-CM ICD-10-CM 1. Palpitations 785.1 R00.2 THYROID STIMULATING HORMONE FREE T4 ECHOCARDIOGRAM TTE HOLTER MONITOR 24-48 HOURS REFER TO CARDIOLOGY (GENERAL) FREE T4 THYROID STIMULATING HORMONE 2. Vegan diet V49.89 Z78.9 VITAMIN B12 / FOLATE VITAMIN B12 / FOLATE 3. Fatigue, unspecified type 780.79 R53.83 Patient Instructions I reviewed your ER report, laboratory tests and ECG: normal. I ordered additional laboratory tests today: TSH. FT4, and B12/Folate. I will send results when in. I also ordered an echocardiogram, Holter and cardiology consult for your symptomatic palpitations. Hopefully we can catch an episode when you are wearing the Holter. ER is recommended for sever symptom as you did yesterday. Stay hydrated, watch for any patterns that bring on your symptoms. Author: Yajaira Anderson MD 11/13/2018 11:45 documented in this encounter Plan of Treatment Date Type Specialty Care Team Description 11/28/2018 Orders Only Cardiology 11/28/2018 Nurse/Clinical Support Internal Medicine 12/10/2018 Office Visit Cardiology Jose Kimbrough MD [address] [place] [address] [phone] Name Type Priority Associated Diagnoses Date/Time THYROID STIMULATING Lab Routine Palpitations 11/13/2018 11:37 AM EDT HORMONE FREE T4 Lab Routine Palpitations 11/13/2018 11:37 AM EDT VITAMIN B12 / FOLATE Lab Routine Vegan diet 11/13/2018 11:37 AM EDT Name Type Priority Associated Diagnoses Order Schedule THYROID STIMULATING HORMONE Lab Routine Palpitations Expected: 11/13/2018 (Approximate), Expires: 11/14/2019 FREE T4 Lab Routine Palpitations Expected: 11/13/2018 (Approximate), Expires: 11/14/2019 VITAMIN B12 / FOLATE Lab Routine Vegan diet Expected: 11/13/2018 (Approximate), Expires: 11/14/2019 ECHOCARDIOGRAM TTE CV Lab Routine Palpitations Expected: 11/13/2018, Expires: 12/18/2019 HOLTER MONITOR 24-48 HOURS EKG Routine Palpitations Expected: 11/13/2018, Expires: 12/18/2019 Name Type Priority Associated Diagnoses Order Schedule REFER TO CARDIOLOGY Referral Routine Palpitations Expected: 11/13/2018, (GENERAL) Expires: 11/14/2019 Health Maintenance Due Date Last Done Comments [...] filedocumented in this encounter Visit Diagnoses Diagnosis Palpitations - Primary Vegan diet Fatigue, unspecified type documented in this encounter Insurance Payer Benefit Plan / Subscriber ID Effective Dates Phone Address Type Group BCBS [facility] BCBS NATIONAL xxxxxxxxx 2013-Present Blue Cross/Blue Shield documented as of this encounter
[2018-12-22 17:42] VITALS: BP 124/72
[2018-12-22] MEDS ORDERED: predniSONE TAB* 20 MG PO ONE (18:10)
[2018-12-22] MEDS ORDERED: Albuterol 2.5 MG/3 ML NEB.SOL* (0.083%) INH ONE (18:10)
[2018-12-22] MEDS ORDERED: Ipratropium 0.5MG/2.5ML NEB* 0.5 MG/2.5 ML NEB.SOLN INH ONE (18:10)
--- NOTE | 2018-12-22 18:44 | UC ---
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 - History of Current Complaint Chief Complaint: UCRespiratory Stated Complaint: COUGH Time Seen by Provider: 12/22/18 18:06 Hx Obtained From: Patient Hx Last Menstrual Period: 11/30/18 Onset/Duration: Gradual Onset, Lasting Days Timing: Constant Severity Initially: Mild Severity Currently: Moderate Pain Intensity: 0 Pain Scale Used: 0-10 Numeric Character: Cough: Nonproductive Aggravating Factors: Exertion, Deep Breaths, Recumbent Position Alleviating Factors: Nothing Associated Signs And Symptoms: Positive: Wheezing - Allergies/Home Medications Allergies/Adverse Reactions: Allergies Allergy/AdvReac Type Severity Reaction Status Date / Time Sulfa (Sulfonamide Allergy Hives Verified 12/22/18 17:41 Antibiotics) Home Medications: Home Medications GuaiFENesin DM* [Robitussin DM*] 5 ml PO Q6HR 12/22/18 [History Confirmed ] PMH/Surg Hx/FS Hx/Imm Hx Previously Healthy: Yes Respiratory History: Asthma - Surgical History Surgical History: Yes Surgery Procedure, Year, and Place: appendectomy 2017 - Family History Known Family History: Positive: Unknown - PT WAS ADOPTED - UNKNOWN FHx - Social History Alcohol Use: Occasionally Substance Use Type: None Smoking Status (MU): Never Smoked Tobacco - Immunization History Most Recent Tetanus Shot: 140 Vaccination Up to Date: Yes Review of Systems All Other Systems Reviewed And Are Negative: Yes Constitutional: Positive: Negative Skin: Positive: Negative Eyes: Positive: Negative ENT: Positive: Negative Respiratory: Positive: Cough, Other - wheezing Cardiovascular: Positive: Negative Gastrointestinal: Positive: Negative Genitourinary: Positive: Negative Motor: Positive: Negative Neurovascular: Positive: Negative Musculoskeletal: Positive: Negative Neurological: Positive: Negative Psychological: Positive: Negative Physical Exam Triage Information Reviewed: Yes Appearance: Well-Appearing, No Pain Distress, Well-Nourished Vital Signs: Initial Vital Signs Temp 99.1 F 12/22/18 17:36 Pulse 82 12/22/18 17:36 Resp 16 12/22/18 17:36 BP 124/72 12/22/18 17:36 Pulse Ox 99 12/22/18 17:36 Vital Signs Reviewed: Yes Eyes: Positive: Conjunctiva Clear ENT: Positive: Hearing grossly normal. Negative: Nasal congestion, Nasal drainage, Trismus, Muffled voice, Hoarse voice Dental Exam: Normal Neck: Positive: Supple, Nontender, No Lymphadenopathy Respiratory: Positive: No respiratory distress, No accessory muscle use, Wheezing Cardiovascular: Positive: RRR Bowel Sounds: Positive: Present Musculoskeletal Exam: Normal Neurological: Positive: Alert Psychological Exam: Normal Skin Exam: Normal Re-Evaluation - Re-Evaluation First Eval Re-Evaluation Time: 19:00 Change: Improved - lungs clear, subjectively much improved Respiratory Course/Dx - Differential Dx/Diagnosis Provider Diagnosis: Bronchospasm with bronchitis, acute Discharge ED - Sign-Out/Discharge Documenting (check all that apply): Patient Departure All imaging exams completed and their final reports reviewed: No Studies - Discharge Plan Condition: Stable Disposition: HOME Prescriptions: predniSONE TAB* [Deltasone 20 MG TAB*] 40 mg PO DAILY #8 tab Patient Education Materials: Bronchospasm (ED), How to Use a Metered-Dose Inhaler and a Spacer (ED) Referrals: Yajaira Anderson MD [Primary Care Provider] - - Billing Disposition and Condition Condition: STABLE Disposition: Home
[2018-12-22] MEDS ORDERED: Albuterol HFA INHALER* 8 gm MDI INH ONE (19:02)
== END 2018-12-22 19:20 | disposition home or self-care (01) ==
LOC: UCEAST 17:19
DX: J20.9 Acute bronchitis, unspecified (principal); J45.909 Unspecified asthma, uncomplicated; Z88.2 Allergy status to sulfonamides
CPT/HCPCS: 99213; A9270-GY; G0463; J7512

== ENCOUNTER 2018-12-23 00:32 | Emergency (ER) | payer BC ==
[2018-12-23] MEDS ORDERED: guaiFENesin/CODIENE 100mg/10mg 5 ML UDC PO ONE (00:58)
[2018-12-23] MEDS ORDERED: Albuterol 2.5 MG/3 ML NEB.SOL* (0.083%) INH ONE (00:59)
[2018-12-23] MEDS ORDERED: LORazepam TAB(*) 1 MG PO ONE (00:59)
--- NOTE | 2018-12-23 01:20 | ED ---
Respiratory - HPI Summary HPI Summary: 23 year old female presents with cough for past couple days. States that she's been short of breath and has been having chest pain. She denies any fevers. She admits to postnasal drip. She denies any sinuses congestion. No sore throat. No headache. Denies any bowel pain. She's been having these coughing fits. She does have a history of childhood asthma. States she was given a DuoNeb at urgent care with improvement. She states she started taking prednisone without any relief. - History of Current Complaint Chief Complaint: EDShortnessOfBreath Stated Complaint: SOB PER PT Time Seen by Provider: 12/23/18 00:53 Pain Intensity: 5 - Allergy/Home Medications Allergies/Adverse Reactions: Allergies Allergy/AdvReac Type Severity Reaction Status Date / Time Sulfa (Sulfonamide Allergy Hives Verified 12/22/18 17:41 Antibiotics) PMH/Surg Hx/FS Hx/Imm Hx Endocrine/Hematology History: Denies: Hx Diabetes, Hx Thyroid Disease Cardiovascular History: Denies: Hx Hypercholesterolemia, Hx Hypertension, Hx Peripheral Vascular Disease Respiratory History: Reports: Hx Asthma Denies: Hx Chronic Obstructive Pulmonary Disease (COPD) GI History: Denies: Hx Ulcer Musculoskeletal History: Denies: Hx Arthritis, Hx Rheumatoid Arthritis, Hx Osteoporosis Sensory History: Denies: Hx Cataracts, Hx Contacts or Glasses, Hx Glaucoma Opthamlomology History: Denies: Hx Cataracts, Hx Contacts or Glasses, Hx Glaucoma Neurological History: Denies: Hx Headaches, Hx Seizures, Hx Transient Ischemic Attacks (TIA) Psychiatric History: Denies: Hx Anxiety, Hx Depression - Surgical History Surgery Procedure, Year, and Place: appendectomy 2017 Infectious Disease History: No Infectious Disease History: Denies: Hx Clostridium Difficile, Hx Hepatitis, Hx Human Immunodeficiency Virus (HIV), Hx of Known/Suspected MRSA, Hx Shingles, Hx Tuberculosis, Hx Known/ Suspected VRE, Hx Known/Suspected VRSA, History Other Infectious Disease, Traveled Outside the [place] in Last 30 Days - Family History Known Family History: Positive: Unknown - PT WAS ADOPTED - UNKNOWN FHx - Social History Alcohol Use: Occasionally Hx Substance Use: No Substance Use Type: Reports: None Hx Tobacco Use: No Smoking Status (MU): Never Smoked Tobacco Review of Systems Negative: Fever Positive: Chest Pain Positive: Shortness Of Breath, Cough All Other Systems Reviewed And Are Negative: Yes Physical Exam Triage Information Reviewed: Yes Vital Signs On Initial Exam: Initial Vitals Temp Pulse Resp BP Pulse Ox 98.8 F 121 26 142/80 98 12/23/18 00:35 12/23/18 00:35 12/23/18 00:35 12/23/18 00:35 12/23/18 00:35 Vital Signs Reviewed: Yes Appearance: Positive: Well-Appearing Skin: Positive: Warm, Dry Head/Face: Positive: Normal Head/Face Inspection Eyes: Positive: Normal, EOMI, ANNALEE, Conjunctiva Clear ENT: Positive: Normal ENT inspection, Pharynx normal, TMs normal Respiratory/Lung Sounds: Positive: Clear to Auscultation, Breath Sounds Present Cardiovascular: Positive: Normal, RRR Abdomen Description: Positive: Nontender, Soft Bowel Sounds: Positive: Present Musculoskeletal: Positive: Normal Neurological: Positive: Normal Psychiatric: Positive: Normal Procedures - Sedation Patient Received Moderate/Deep Sedation with Procedure: No Diagnostics - Vital Signs Vital Signs Temp Pulse Resp BP Pulse Ox 12/23/18 00:35 98.8 F 121 26 142/80 98 - Laboratory Result Diagrams: 12/23/18 01:18 EST 12/23/18 01:18 EST Lab Statement: Any lab studies that have been ordered have been reviewed, and results considered in the medical decision making process. - Radiology chest Radiology Interpretation Completed By: ED Physician Summary of Radiographic Findings: no pneumonia Re-Evaluation - Re-Evaluation First Eval Re-Evaluation Time: 01:11 Change: Improved Comment: feels better Disposition - Course Course Of Treatment: 23 year old female presents with cough for past couple days. States that she's been short of breath and has been having chest pain. She denies any fevers. She admits to postnasal drip. She denies any sinuses congestion. No sore throat. No headache. Denies any bowel pain. She's been having these coughing fits. She does have a history of childhood asthma. States she was given a DuoNeb at urgent care with improvement. She states she started taking prednisone without any relief. On exam lungs clear auscultation. patient appears anxious. Dry cough noted. wbc normal. d-dimer neg. Chest x-ray normal. Gave Robitussin, Ativan, and breathing treatment and feeling better. will prescribe robitussin. told continue steriods and inhaler. patient understand and agrees with plan. - Differential Dx - Cardiopulmonary Differential Diagnoses - Cardiopulmonary: Bronchitis, Influenza, Lower Resp Infection - Diagnoses Provider Diagnoses: Bronchitis Discharge ED - Sign-Out/Discharge Documenting (check all that apply): Patient Departure - Discharge Plan Condition: Good Disposition: HOME Prescriptions: guaiFENesin/CODIEN 100MG-10MG* [Robitussin AC 100Mg-10Mg*] 5 ml PO Q6H PRN #100 ml MDD 20ml PRN Reason: Cough Patient Education Materials: Acute Bronchitis (ED) Referrals: Yajaira Anderson MD [Primary Care Provider] - Additional Instructions: Take cough medication 5ml (1 teaspoon) every 6 hours as needed cough continue inhaler Take Tylenol or ibuprofen for pain every 6 hours Return to ED if develop any new or worsening symptoms - Billing Disposition and Condition Condition: GOOD Disposition: Home - Attestation Statements Provider Attestation: I was available for consult. This patient was seen by the RACHEL. The patient was not presented to, seen by, or examined by me. Nomi Carson MD
[2018-12-23 01:24] LABS: ABS Lymphocytes 0.4 10^3/ul (1.0-4.8); ABS Monocytes 0.2 10^3/ul (0-0.8); ABS Neutrophils 7.2 10^3/ul (1.5-7.7); Hematocrit 39 % (35-47); Lymphocyte % 5.6 %; Mean Corpuscular HGB Conc 34 g/dL (31-36); Mean Corpuscular Hemoglobin 31 pg (27-31); Mean Corpuscular Volume 90 fL (80-97); Mean Platelet Volume 9.1 fL (7.4-10.4); Platelet Count 187 10^3/uL (150-450); Red Blood Count 4.27 10^6 /uL (3.70-4.87); Red Cell Distribution Width 13 % (10-15); White Blood Count 7.8 10^3/uL (3.5-10.8)
[2018-12-23 01:38] VITALS: BP 118/64
[2018-12-23 01:43] LABS: ALT 21 U/L (7-52); AST 23 U/L (13-39); Albumin 4.6 g/dL (3.2-5.2); Albumin/Globulin Ratio 1.6 (1-3); Alkaline Phosphatase 62 U/L (34-104); Anion Gap 11 mmol/L (2-11); Blood Urea Nitrogen 12 mg/dL (6-24); C Reactive Protein 36.62 mg/L (<8.01); CO2 Carbon Dioxide 23 mmol/L (22-32); Calcium 9.5 mg/dL (8.6-10.3); Chloride 105 mmol/L (101-111); EGFR African American 107.6 (>60); EGFR Non-African American 88.9 (>60); Globulin 2.8 g/dL (2-4); Glucose 227 mg/dL (70-100); Sodium 139 mmol/L (135-145); Total Protein 7.4 g/dL (6.4-8.9)
[2018-12-23 01:48] LABS: HCG Pregnancy < 0.60 mIU/mL
== END 2018-12-23 01:37 | disposition home or self-care (01) ==
LOC: ED 00:32
DX: J40 Bronchitis, not specified as acute or chronic (principal); R00.0 Tachycardia, unspecified; Z88.2 Allergy status to sulfonamides
CPT/HCPCS: 36415; 71046; 80053; 84484; 84702; 85025; 85379; 86140; 93005; 99283; A9270-GY

== ENCOUNTER 2019-03-25 17:29 | Emergency (ER) | payer BC ==
[2019-03-25 17:57] VITALS: BP 113/77
--- NOTE | 2019-03-25 18:18 | UC ---
General HPI - HPI Summary HPI Summary: Patient is a 23yo female presenting with nasal congestion x7 days and maxillary sinus tenderness/pressure x2 days. Patient denies sore throat and cough. Denies fever, chills, and body aches. Patient also notes that she thinks she may have a yeast infection that started 2 days ago. Notes history of yeast infections and "this feels similar." Notes burning "on the outside" with urination that "is not like a UTI." Denies frequency and urgency. Also notes redness "on the outside of the vagina." Denies swelling and itching. Denies lower abdominal pain. Denies flank pain. Denies abnormal discharge and odor. Patient denies concern for STIs but states she is "unsure" and would like testing. - History of Current Complaint Chief Complaint: UCRespiratory Stated Complaint: SINUS ISSUE, PERSONAL Hx Obtained From: Patient Hx Last Menstrual Period: 03/25/19 Pain Intensity: 0 - Allergy/Home Medications Allergies/Adverse Reactions: Allergies Allergy/AdvReac Type Severity Reaction Status Date / Time Sulfa (Sulfonamide Allergy Hives Verified 03/25/19 17:57 Antibiotics) PMH/Surg Hx/FS Hx/Imm Hx - Surgical History Surgical History: Yes Surgery Procedure, Year, and Place: appendectomy 2017 - Family History Known Family History: Positive: Unknown - PT WAS ADOPTED - UNKNOWN FHx, Non- Contributory - Social History Alcohol Use: Occasionally Substance Use Type: None Smoking Status (MU): Never Smoked Tobacco - Immunization History Most Recent Tetanus Shot: 140 Vaccination Up to Date: Yes Review of Systems All Other Systems Reviewed And Are Negative: Yes Constitutional: Positive: Negative ENT: Positive: Sinus Congestion, Sinus Pain/Tenderness. Negative: Sore Throat Respiratory: Positive: Negative Cardiovascular: Positive: Negative Gastrointestinal: Positive: Negative Genitourinary: Positive: Vaginal/Penile Burning. Negative: Dysuria, Hematuria, Frequency, Urgency, Vaginal/Penile Discharge Musculoskeletal: Positive: Negative Neurological: Positive: Negative Physical Exam - Summary Physical Exam Summary: Vital Signs Reviewed: Yes A+Ox3, no distress Eyes: Conjunctiva Clear ENT: Hearing grossly normal, TM x 2 clear, +nasal congestion, +maxillary sinus tenderness, +PND, uvula midline, moist, no exudate, no erythema Neck: Positive: Supple Respiratory: Positive: No respiratory distress, No accessory muscle use + CTA throughout no w/r Cardiovascular: RRR nl s1, s2 no m/r Musculoskeletal Exam: GLEASON x 4 without difficulty Neurological: Positive: Alert Psychological: Positive: age appropriate behavior Skin: Positive: no rash, no ecchymosis Vital Signs: Initial Vital Signs Temp 98.6 F 03/25/19 17:53 Pulse 65 03/25/19 17:53 Resp 12 03/25/19 17:53 BP 113/77 03/25/19 17:53 Pulse Ox 100 03/25/19 17:53 Course/Dx - Course Course Of Treatment: I treated patient for sinusitis with augmentin and instructed to continue with symptomatic treatment. Patient declined pelvic exam. UA positive for 2+ leuks and 2+ blood. Patient currently on period. Denies UTI symptoms and states she does not need treatment for one. Patient tested for yeast, BV, trichomonas, gonorrhea, and chlamydia. Patient prefers to be treated for yeast infection at this time. I informed her that she would be notified with any results that warrant a change in treatment. Instructed to follow up if symptoms persist or worsen. Patient voiced understanding and agreed with treatment plan. - Diagnoses Provider Diagnosis: Vaginal irritation, Sinusitis, Encounter for screening for bacterial sexually transmitted disease Discharge ED - Sign-Out/Discharge Documenting (check all that apply): Patient Departure All imaging exams completed and their final reports reviewed: No Studies - Discharge Plan Condition: Stable Disposition: HOME Prescriptions: Amoxicillin/Clavulanate TAB* [Augmentin TAB 875*] 875 mg PO BID #10 tab Fluconazole 150 MG TAB* [Diflucan 150 MG TAB*] 150 mg PO ED ONCE #2 tablet Fluticasone NASAL SPRAY 50MCG* [Flonase NASAL SPRAY 50MCG*] 2 spray BOTH NARES DAILY PRN #1 btl PRN Reason: Congestion Patient Education Materials: Sexually Transmitted Diseases (ED), Sinusitis (ED) , Yeast Infection (ED) Referrals: Yajaira Anderson MD [Primary Care Provider] - If Needed [facility] [Outside] - If Needed Additional Instructions: Take augmentin for treatment of your sinus infection. Use flonase or nasal saline spray for symptom relief. Discontinue use of Afrin. Take diflucan for treatment of possible yeast infection. Your swab and urine have been sent for culture and you will be notified with any results that warrant a change in treatment. Follow up with your primary care provider or the [facility] if symptoms worsen or persist. - Billing Disposition and Condition Condition: STABLE Disposition: Home
[2019-03-27 13:36] LABS: Chlamydia trachomatis NAA Negative (Negative); Neisseria gonorrhoeae (GC) NAA Negative (Negative)
== END 2019-03-25 18:45 | disposition home or self-care (01) ==
LOC: UCEAST 17:29
DX: Z11.3 Encounter for screening for infections with a predominantly sexual mode of transmission (principal); Z11.2 Encounter for screening for other bacterial diseases; J32.0 Chronic maxillary sinusitis; N89.8 Other specified noninflammatory disorders of vagina; Z88.2 Allergy status to sulfonamides
CPT/HCPCS: 81003; 87077; 87086; 87480; 87491; 87510; 87591; 87660; 99212; G0463

== ENCOUNTER 2023-04-23 20:28 | Inpatient (IN) ==
[2023-04-23] MEDS ORDERED: Lidocaine 1% VIAL 10 MG/ML 30 ML VIAL INJ PRN (21:32)
[2023-04-23] MEDS: Lactated Ringers 1000 ml BAG 1,000 ML IV ONE (21:39)
[2023-04-23 21:55] LABS: ABS Basophils 0.1 10^3/uL (0.0-0.1); ABS Lymphocytes 2.5 10^3/uL (1.0-4.8); ABS Monocytes 1.3 10^3/uL (0.0-0.9); ABS Neutrophils 13.6 10^3/uL (1.5-7.6); ABS Nucleated RBC 0.02 10^3/ul; Eosinophil % 0.1 %; Hematocrit 32.8 % (35-45); Hemoglobin 10.8 g/dL (11.5-14.3); Lymphocyte % 14.4 %; Mean Corpuscular Hemoglobin 28.7 pg (27-33); Mean Corpuscular Hgb Conc 32.9 g/dL (31-36); Mean Corpuscular Volume 87.3 fL (80-97); Mean Platelet Volume 11.1 fL (7.5-11.2); Nucleated Red Blood Cells % 0.1 %/100WBC (0.0-0.8); Platelet Count 167 10^3/uL (150-450); Red Blood Count 3.76 10^6/uL (3.63-4.92); Red Cell Distribution Width 14.9 % (12-17); White Blood Count 17.5 10^3/uL (3.8-11.8)
[2023-04-23 22:18] LABS: Urine Benzodiazepine Screen None Detected (None Detect); Urine Cannabinoids Screen None Detected (None Detect); Urine Opiates Screen None Detected (None Detect)
[2023-04-23] MEDS: OBEPIDURAL (200 ML) 200 ML EPIDURAL ONE (22:35)
[2023-04-23] MEDS: Lidocaine 1.5% EPI 1:200,000 30 ML SDV ONE (22:35)
[2023-04-23] MEDS: Lactated Ringers 1000 ml BAG 1,000 ML IV SCH (22:39)
[2023-04-23] MEDS ORDERED: Sodium Citrate/Citric Acid LIQ 15 ML UDC PO PRN (22:44)
[2023-04-23] MEDS ORDERED: Lactated Ringers 1000 ml BAG 500 ML IV PRN ×2 (22:44)
[2023-04-23] MEDS ORDERED: Phenylephrine 40 mcg/mL 10mL (400mcg) SYRINGE IV PUSH PRN ×2 (22:44)
[2023-04-23 23:46] LABS: Urine Appearance Turbid; Urine Bilirubin Negative (Negative); Urine Blood 3+ (Negative); Urine Color Yellow; Urine Glucose Negative (Negative); Urine Ketones 1+ (Negative); Urine Nitrite Negative (Negative); Urine Protein 1+ (>=30 mg/dL) (Negative); Urine Urobilinogen Negative (Negative); Urine pH 6.5 (5.0-8.0)
[2023-04-24] LABS: Urine Bacteria Absent /HPF (Absent); Urine Red Blood Cell 3+(>10/hpf) /HPF (0-Trace); Urine Squamous Epithelial Cell Present /HPF (Absent); Urine Transitional Epithelial Present /HPF (Absent); Urine White Blood Cell 1+(6-10/hpf) /HPF (0-Trace)
[2023-04-24] MEDS: Lactated Ringers 1000 ml BAG 1,000 ML IV ONE (00:30)
[2023-04-24] MEDS: OBEPIDURAL (200 ML) 200 ML EPIDURAL SCH (00:30)
[2023-04-24] MEDS: Lactated Ringers 1000 ml BAG 1,000 ML IV SCH ×2 (01:15→03:36)
[2023-04-24] MEDS ORDERED: Oxytocin 10 UNITS/ML 1 ML VIAL ONE (01:39)
[2023-04-24] MEDS ORDERED: Phenylephrine IV 10 MG/ML 1 ml VIAL ONE (01:39)
[2023-04-24] MEDS ORDERED: fentaNYL 100 mcg/2 ml 50 MCG/ML VIAL ONE (01:39)
[2023-04-24] MEDS ORDERED: Morphine PF AMP (0.5MG/ML) 5 MG/10 ML AMP ONE (01:39)
[2023-04-24] MEDS ORDERED: Lidocaine 2% w/ EPI 1:200,000 MPF 20 ML SDV VIAL ONE (01:40)
[2023-04-24] MEDS ORDERED: Chloroprocaine 3% 20 ml VIAL ONE (01:40)
[2023-04-24] MEDS ORDERED: Dexamethasone IV 4 MG/ML VIAL 1 ml VIAL ONE (01:41)
[2023-04-24] MEDS ORDERED: Scopolamine 1 mg/72hr PATCH ONE (01:41)
[2023-04-24 01:46] LABS: Urine Creatinine Concentration 119.55 mg/dL (20.00-320.00); Urine TP Creat Ratio 0.23 mg/mg
[2023-04-24] MEDS ORDERED: Acetaminophen IV 1 GM/100ML 1,000 MG/100 ML BAG IV ONE (02:20)
[2023-04-24] MEDS ORDERED: Phenylephrine 40 mcg/mL 10mL (400mcg) SYRINGE ONE (02:25)
[2023-04-24 02:33] LABS: Albumin 3.2 g/dL (3.2-5.2); Albumin/Globulin Ratio 1.4 (1-3); Calcium 8.9 mg/dL (8.6-10.3); Creatinine, Serum 0.81 mg/dL (0.51-0.95); Globulin 2.3 g/dL (2-4); Potassium 4.4 mmol/L (3.5-5.0); Total Bilirubin 0.4 mg/dL (0.2-1.0); Total Protein 5.5 g/dL (6.4-8.9)
[2023-04-24] MEDS ORDERED: Ondansetron 4 mg VIAL 2 MG/ML 2 ml VIAL IV PRN (02:40)
[2023-04-24] MEDS ORDERED: fentaNYL 100 mcg/2 ml 50 MCG/ML VIAL IV PRN (02:40)
[2023-04-24] MEDS ORDERED: Naloxone 0.4 mg VIAL 0.4 mg/ml 1 ml VIAL IV PRN (02:40)
[2023-04-24] MEDS ORDERED: Metoclopramide 5 MG/ML VIAL (10 mg) IV PRN (02:41)
[2023-04-24] MEDS ORDERED: Naloxone 0.4 mg VIAL 0.4 mg/ml 1 ml VIAL IV PUSH PRN (02:41)
[2023-04-24] MEDS ORDERED: Acetaminophen IV 1 GM/100ML 1,000 MG/100 ML BAG IV PRN (02:41)
[2023-04-24] MEDS ORDERED: Glycerin ADULT 2.4 gm SUPP PR PRN (03:17)
[2023-04-24] MEDS ORDERED: Witch Hazel PAD JAR TOPICAL PRN (03:17)
[2023-04-24] MEDS ORDERED: Dibucaine 1% OINT 28.35 GM TUBE PR PRN (03:17)
[2023-04-24] MEDS: ceFOXitin 2 GM IVPREMIX 2 GM/50 ML BAG IVPB ONE (03:34)
[2023-04-24] MEDS: Buffered Lidocaine 1% SYRIN 1 ml INTRADERM ONE (03:34)
[2023-04-24] MEDS ORDERED: Lactated Ringers 1000 ml BAG 1,000 ML IV SCH (04:00)
[2023-04-24] MEDS: Oxytocin in LR 20,000 MILLI.UNIT/1,000 ML BAG IV SCH (04:44)
[2023-04-24] MEDS: Ondansetron 4 mg VIAL 2 MG/ML 2 ml VIAL IV PRN (07:57)
[2023-04-25 06:38] LABS: ABS Basophils 0.1 10^3/uL (0.0-0.1); ABS Lymphocytes 2.2 10^3/uL (1.0-4.8); ABS Monocytes 1.4 10^3/uL (0.0-0.9); ABS Neutrophils 18.3 10^3/uL (1.5-7.6); Eosinophil % 0.2 %; Hematocrit 26.6 % (35-45); Hemoglobin 8.6 g/dL (11.5-14.3); Lymphocyte % 9.8 %; Mean Corpuscular Hemoglobin 28.6 pg (27-33); Mean Corpuscular Hgb Conc 32.5 g/dL (31-36); Mean Corpuscular Volume 88.1 fL (80-97); Mean Platelet Volume 10.2 fL (7.5-11.2); Platelet Count 146 10^3/uL (150-450); Red Blood Count 3.02 10^6/uL (3.63-4.92); Red Cell Distribution Width 15.1 % (12-17); White Blood Count 21.9 10^3/uL (3.8-11.8)
[2023-04-27 09:55] VITALS: BP 141/88
== END 2023-04-27 10:00 | disposition home or self-care (01) | DRG 540 ==
LOC: MCHOBOUT 20:28 → MCHOB 21:19
PROVIDERS: ADMIT Midwife; ATTEND Obstetrics & Gynecology